=== PATIENT | male | born 1975 | race African-American/Black ===

== ENCOUNTER 2017-05-11 21:13 | Inpatient (IN) | payer MEDICAID ==
[~2017-05-11] VITALS: Ht 185.4 cm; Wt 72.9 kg
[~2017-05-11 21:13] MED LIST: EMTR1TAB11 PO; LEVE500T53 PO; OLAN10TA3 PO
[2017-05-12] MEDS ORDERED: PNEUMOCOCCAL VACCINE POLYVALENT 0.5 ML VIAL [PPSV23] IM ONE (03:00)
[2017-05-12 03:02] LABS: GLUCOSE,POINT OF CARE 93 MG/DL (70-110)
[2017-05-12 03:14] VITALS: BP 134/90
[2017-05-12] MEDS ORDERED: ZOLPIDEM TARTRATE 10 MG TABLET PO PRN (07:45)
[2017-05-12 08:06] LABS: BASOPHILS % (AUTO) 0.5 % (0.0-2.0); EOSINOPHILS % (AUTO) 11.3 % (1.0-6.0); HEMATOCRIT 40.3 % (41-53); LYMPHOCYTES # (AUTO) 1.2 K/uL (1.0-4.8); LYMPHOCYTES % (AUTO) 40.7 % (22.0-44.0); MEAN CORPUSCULAR HEMOGLOBIN 28.5 pg (26.0-34.0); MEAN CORPUSCULAR HGB CONC 34.6 G/dL (31.0-37.0); MEAN CORPUSCULAR VOLUME 82 fL (80-100); MONOCYTES # (AUTO) 0.4 K/uL (0.1-1.0); MONOCYTES % (AUTO) 13.9 % (2.0-9.0); NEUTROPHILS % (AUTO) 33.6 % (40.0-70.0); PLATELET COUNT (AUTO) 159 K/uL (150-450); RED BLOOD CELL COUNT(AUTO) 4.91 MIL/uL (4.50-5.90); RED CELL DISTRIBUTION WIDTH 14.3 % (11.5-14.5); WHITE BLOOD COUNT (AUTO) 2.9 K/uL (4.5-11.0)
[2017-05-12 08:17] LABS: HEMOGLOBIN A1C 5.6 % (4.5-6.2)
[2017-05-12 08:39] LABS: ALANINE AMINOTRANSFERASE 64 U/L (12-78); ANION GAP 6 mmol/L (8-16); ASPARTATE AMINOTRANSFERASE 42 U/L (15-37); BILIRUBIN,TOTAL 0.4 mg/dL (0.1-1.0); CALCIUM, TOTAL 8.5 mg/dL (8.8-10.5); CARBON DIOXIDE 29 mmol/L (22-29); CHLORIDE 108 mmol/L (98-107); CHOL/HDL RATIO 3.3 (4.2-7.3); GLOMERULAR FILTR. RATE CALC > 60 mL/min (>60); POTASSIUM 3.8 mmol/L (3.5-5.1); SODIUM SERUM 143 mmol/L (136-145); THYROID STIMULATING HORMONE 0.92 uIU/mL (0.36-3.74); TOTAL PROTEIN, SERUM 6.6 g/dL (6.4-8.2); UREA NITROGEN, BLOOD 13 mg/dL (7-18)
[2017-05-12] MEDS ORDERED: IBUPROFEN 600 MG TABLET PO PRN (09:00)
[2017-05-12] MEDS ORDERED: BENZOCAINE/MENTHOL LOZENGE MM PRN (09:00)
[2017-05-12] MEDS ORDERED: BACITRACIN 28.4 GM OINTMENT TP PRN (09:00)
[2017-05-12] MEDS ORDERED: ALBUTEROL SULFATE HFA 90 MCG/PUFF 8 GM INHALER IH PRN (09:00)
[2017-05-12] MEDS ORDERED: PETROLATUM,WHITE 71 GM JELLY TP PRN (09:00)
[2017-05-12] MEDS ORDERED: MAGNESIUM HYDROXIDE SUSPENSION 30 ML UDCUP PO PRN (09:00)
[2017-05-12] MEDS: EMTRICITABINE/TENOFOVIR 200-300 MG TABLET PO SCH (09:00)
[2017-05-12] MEDS ORDERED: CloNIDine HCL 0.1 MG TABLET PO PRN (09:00)
[2017-05-12] MEDS ORDERED: ONDANSETRON HCL 4 MG TABLET PO PRN (09:00)
[2017-05-12] MEDS ORDERED: ACETAMINOPHEN 325 MG TABLET PO PRN (09:00)
[2017-05-12] MEDS ORDERED: MAG HYDROX/AL HYDROX/SIMETH ES 30 ML SUSPENSION UDCUP PO PRN (09:00)
[2017-05-12] MEDS ORDERED: LOPERAMIDE HCL 2 MG CAPSULE PO PRN (09:00)
[2017-05-12 09:30] VITALS: BP 130/79
[2017-05-12] MEDS: MULTIVITAMINS WITH MINERALS, THERAPEUTIC TABLET PO SCH (10:08)
[2017-05-12] MEDS: LevETIRAcetam 500 MG TABLET PO SCH ×2 (10:08→17:53)
[2017-05-12] MEDS: QUEtiapine FUMARATE 100 MG TABLET PO PRN (15:02)
[2017-05-12] MEDS: LORazepam 1 MG TABLET PO PRN (15:02)
[2017-05-12 16:53] VITALS: BP 136/91
[2017-05-12] MEDS: HALOPERIDOL 5 MG TABLET PO SCH (17:53)
[2017-05-12] MEDS: BENZTROPINE MESYLATE 0.5 MG TABLET PO SCH (17:53)
[2017-05-12] MEDS ORDERED: LORazepam 2 MG/ML VIAL IM ONE (19:15)
[2017-05-12] MEDS ORDERED: HALOPERIDOL LACTATE 5 MG/ML VIAL IM ONE (19:15)
[2017-05-12] MEDS ORDERED: DiphenhydrAMINE HCL 50 MG/ML VIAL IM ONE (19:15)
[2017-05-13 06:31] VITALS: BP 128/84
[2017-05-13] MEDS: HALOPERIDOL 5 MG TABLET PO SCH ×2 (09:41→16:48)
[2017-05-13] MEDS: EMTRICITABINE/TENOFOVIR 200-300 MG TABLET PO SCH (09:41)
[2017-05-13] MEDS: LORazepam 1 MG TABLET PO PRN ×2 (09:41→16:48)
[2017-05-13] MEDS: BENZTROPINE MESYLATE 0.5 MG TABLET PO SCH ×2 (09:41→16:48)
[2017-05-13] MEDS: LevETIRAcetam 500 MG TABLET PO SCH ×2 (09:42→16:48)
[2017-05-13] MEDS: MULTIVITAMINS WITH MINERALS, THERAPEUTIC TABLET PO SCH (09:42)
[2017-05-14] MEDS: HALOPERIDOL 5 MG TABLET PO SCH ×2 (09:32→16:58)
[2017-05-14] MEDS: LevETIRAcetam 500 MG TABLET PO SCH ×2 (09:32→16:58)
[2017-05-14] MEDS: LORazepam 1 MG TABLET PO PRN ×2 (09:32→16:58)
[2017-05-14] MEDS: MULTIVITAMINS WITH MINERALS, THERAPEUTIC TABLET PO SCH (09:32)
[2017-05-14] MEDS: BENZTROPINE MESYLATE 0.5 MG TABLET PO SCH ×2 (09:33→16:58)
[2017-05-14] MEDS: EMTRICITABINE/TENOFOVIR 200-300 MG TABLET PO SCH (09:34)
[2017-05-15 08:38] LABS: APPEARANCE,URINE CLEAR (CLEAR); GLUCOSE, URINE (UA) NEGATIVE (NEGATIVE); KETONES,URINE NEGATIVE (NEGATIVE); LEUKOCYTE ESTERASE ,URINE NEGATIVE (NEGATIVE); OCCULT BLOOD,URINE NEGATIVE (NEGATIVE); PH,URINE 6.5 (5.0-8.0); PROTEIN,URINE NEGATIVE (NEGATIVE)
[2017-05-15] MEDS: EMTRICITABINE/TENOFOVIR 200-300 MG TABLET PO SCH (09:26)
[2017-05-15] MEDS: BENZTROPINE MESYLATE 0.5 MG TABLET PO SCH ×2 (09:27→17:07)
[2017-05-15] MEDS: LevETIRAcetam 500 MG TABLET PO SCH ×2 (09:27→17:08)
[2017-05-15] MEDS: HALOPERIDOL 5 MG TABLET PO SCH ×2 (09:27→17:08)
[2017-05-15] MEDS: QUEtiapine FUMARATE 100 MG TABLET PO PRN (09:28)
[2017-05-15] MEDS: MULTIVITAMINS WITH MINERALS, THERAPEUTIC TABLET PO SCH (09:31)
[2017-05-15 09:50] LABS: ADD UA MICROSCOPIC NO
[2017-05-15] MEDS: LORazepam 1 MG TABLET PO PRN (17:08)
[2017-05-16] MEDS: MULTIVITAMINS WITH MINERALS, THERAPEUTIC TABLET PO SCH (09:36)
[2017-05-16] MEDS: HALOPERIDOL 5 MG TABLET PO SCH ×2 (09:36→16:43)
[2017-05-16] MEDS: BENZTROPINE MESYLATE 0.5 MG TABLET PO SCH ×2 (09:36→16:43)
[2017-05-16] MEDS: LevETIRAcetam 500 MG TABLET PO SCH ×2 (09:36→16:43)
[2017-05-16] MEDS: EMTRICITABINE/TENOFOVIR 200-300 MG TABLET PO SCH (09:36)
[2017-05-16] MEDS: LORazepam 1 MG TABLET PO PRN ×2 (09:40→16:42)
[2017-05-16 16:15] VITALS: BP 113/69
[2017-05-17 06:45] VITALS: BP 119/70
[2017-05-17 08:12] VITALS: BP 117/86
[2017-05-17] MEDS: LORazepam 1 MG TABLET PO PRN ×2 (08:46→16:42)
[2017-05-17] MEDS: LevETIRAcetam 500 MG TABLET PO SCH ×2 (08:46→16:42)
[2017-05-17] MEDS: EMTRICITABINE/TENOFOVIR 200-300 MG TABLET PO SCH (08:46)
[2017-05-17] MEDS: HALOPERIDOL 5 MG TABLET PO SCH ×2 (08:47→16:42)
[2017-05-17] MEDS: BENZTROPINE MESYLATE 0.5 MG TABLET PO SCH ×2 (08:47→16:42)
[2017-05-17] MEDS: MULTIVITAMINS WITH MINERALS, THERAPEUTIC TABLET PO SCH (08:47)
[2017-05-17 16:45] VITALS: BP 119/86
[2017-05-18 06:43] VITALS: BP 110/86
[2017-05-18] MEDS: BENZTROPINE MESYLATE 0.5 MG TABLET PO SCH ×2 (08:54→16:26)
[2017-05-18] MEDS: LORazepam 1 MG TABLET PO PRN ×2 (08:54→16:26)
[2017-05-18] MEDS: HALOPERIDOL 5 MG TABLET PO SCH ×2 (08:54→16:26)
[2017-05-18] MEDS: LevETIRAcetam 500 MG TABLET PO SCH ×2 (08:54→16:26)
[2017-05-18] MEDS: MULTIVITAMINS WITH MINERALS, THERAPEUTIC TABLET PO SCH (08:54)
[2017-05-18] MEDS: EMTRICITABINE/TENOFOVIR 200-300 MG TABLET PO SCH (08:54)
[2017-05-18 09:02] VITALS: BP 100/59
[2017-05-18 16:00] VITALS: BP 121/86
[2017-05-19 06:34] VITALS: BP 124/82
[2017-05-19 08:19] VITALS: BP 156/89
[2017-05-19] MEDS: BENZTROPINE MESYLATE 0.5 MG TABLET PO SCH ×2 (09:21→17:00)
[2017-05-19] MEDS: EMTRICITABINE/TENOFOVIR 200-300 MG TABLET PO SCH (09:21)
[2017-05-19] MEDS: LevETIRAcetam 500 MG TABLET PO SCH ×2 (09:21→17:00)
[2017-05-19] MEDS: MULTIVITAMINS WITH MINERALS, THERAPEUTIC TABLET PO SCH (09:21)
[2017-05-19] MEDS: HALOPERIDOL 5 MG TABLET PO SCH ×2 (09:21→17:00)
[2017-05-19] MEDS: LORazepam 1 MG TABLET PO PRN (09:31)
[2017-05-19] MEDS ORDERED: LORazepam 2 MG/ML VIAL IM ONE (11:15)
[2017-05-19] MEDS ORDERED: HALOPERIDOL LACTATE 5 MG/ML VIAL ONE (11:15)
[2017-05-19] MEDS ORDERED: HALOPERIDOL LACTATE 5 MG/ML VIAL IM ONE (11:15)
[2017-05-19] MEDS ORDERED: DiphenhydrAMINE HCL 50 MG/ML VIAL ONE (11:15)
[2017-05-19] MEDS ORDERED: LORazepam 2 MG/ML VIAL ONE (11:15)
[2017-05-19] MEDS ORDERED: DiphenhydrAMINE HCL 50 MG/ML VIAL IM ONE (11:15)
[2017-05-20 04:29] VITALS: BP 136/88
[2017-05-20] MEDS: HALOPERIDOL 5 MG TABLET PO SCH ×2 (09:25→17:07)
[2017-05-20] MEDS: MULTIVITAMINS WITH MINERALS, THERAPEUTIC TABLET PO SCH (09:25)
[2017-05-20] MEDS: LevETIRAcetam 500 MG TABLET PO SCH ×2 (09:26→17:08)
[2017-05-20] MEDS: EMTRICITABINE/TENOFOVIR 200-300 MG TABLET PO SCH (09:26)
[2017-05-20] MEDS: BENZTROPINE MESYLATE 0.5 MG TABLET PO SCH ×2 (09:26→17:07)
[2017-05-20] MEDS: LORazepam 1 MG TABLET PO PRN ×2 (09:30→17:08)
[2017-05-20 16:37] VITALS: BP 117/81
[2017-05-21 03:23] VITALS: BP 127/70
[2017-05-21] MEDS: EMTRICITABINE/TENOFOVIR 200-300 MG TABLET PO SCH (09:35)
[2017-05-21] MEDS: LORazepam 1 MG TABLET PO PRN (09:35)
[2017-05-21] MEDS: MULTIVITAMINS WITH MINERALS, THERAPEUTIC TABLET PO SCH (09:35)
[2017-05-21] MEDS: BENZTROPINE MESYLATE 0.5 MG TABLET PO SCH (09:35)
[2017-05-21] MEDS: HALOPERIDOL 5 MG TABLET PO SCH (09:35)
[2017-05-21] MEDS: LevETIRAcetam 500 MG TABLET PO SCH (09:35)
[2017-05-21] MEDS ORDERED: HALO10 PO (13:55)
[2017-05-21] MEDS ORDERED: BENZ0.5T6 PO (13:58)
== END 2017-05-21 14:30 | disposition home or self-care (01) | DRG 750 ==
LOC: B2S 05-12 02:14 → B3A 05-12 02:14
PROVIDERS: ADMIT Psychiatry & Neurology Psychiatry; ATTEND Psychiatry & Neurology Psychiatry
DX: F25.0 Schizoaffective disorder, bipolar type (principal); R45.851 Suicidal ideations; E55.9 Vitamin D deficiency, unspecified; R45.850 Homicidal ideations; G40.909 Epilepsy, unspecified, not intractable, without status epilepticus; J45.909 Unspecified asthma, uncomplicated; F17.210 Nicotine dependence, cigarettes, uncomplicated; F12.90 Cannabis use, unspecified, uncomplicated; R63.6 Underweight; D72.819 Decreased white blood cell count, unspecified; G47.00 Insomnia, unspecified; F15.10 Other stimulant abuse, uncomplicated; F20.0 Paranoid schizophrenia; Z91.14 Patient's other noncompliance with medication regimen; Z59.0 Homelessness; Z68.21 Body mass index [BMI] 21.0-21.9, adult; Z71.6 Tobacco abuse counseling; Z71.51 Drug abuse counseling and surveillance of drug abuser; Z88.0 Allergy status to penicillin; Z88.2 Allergy status to sulfonamides; Z79.899 Other long term (current) drug therapy
CPT/HCPCS: 80307; 82962; 83036; 84443; J1200; J1630; J2060

== ENCOUNTER 2018-03-08 18:37 | Inpatient (IN) | payer MEDICAID, OTHER ==
[~2018-03-08] VITALS: Ht 180.3 cm; Wt 66.7 kg
[~2018-03-08 18:37] MED LIST changes: +BENZ0.5T44 PO; -EMTR1TAB11 PO; +HALO10 PO; -OLAN10TA3 PO; +TRUVT PO
[2018-03-08 19:51] LABS: EOSINOPHILS % (AUTO) 9.6 % (1.0-6.0); HEMATOCRIT 46.5 % (41-53); HEMOGLOBIN 16.2 g/dL (13.5-17.5); LYMPHOCYTES % (AUTO) 37.8 % (22.0-44.0); MEAN CORPUSCULAR HEMOGLOBIN 27.8 pg (26.0-34.0); MEAN CORPUSCULAR HGB CONC 34.8 G/dL (31.0-37.0); MEAN CORPUSCULAR VOLUME 80 fL (80-100); MONOCYTES # (AUTO) 0.3 K/uL (0.1-1.0); MONOCYTES % (AUTO) 12.8 % (2.0-9.0); NEUTROPHILS % (AUTO) 37.8 % (40.0-70.0); PLATELET COUNT (AUTO) 153 K/uL (150-450); RED BLOOD CELL COUNT(AUTO) 5.83 MIL/uL (4.50-5.90); RED CELL DISTRIBUTION WIDTH 14.6 % (11.5-14.5)
[2018-03-08 20:05] LABS: ANION GAP 12 mmol/L (8-16); CALCIUM, TOTAL 9.1 mg/dL (8.8-10.5); CARBON DIOXIDE 26 mmol/L (22-29); CHLORIDE 103 mmol/L (98-107); CREATININE 1.11 mg/dL (0.60-1.30); GLOMERULAR FILTR. RATE CALC > 60 mL/min (>60); GLUCOSE,RANDOM 88 mg/dL (70-110); POTASSIUM 3.1 mmol/L (3.5-5.1); SODIUM SERUM 141 mmol/L (136-145); UREA NITROGEN, BLOOD 12 mg/dL (7-18)
[2018-03-08 20:11] LABS: ALANINE AMINOTRANSFERASE 69 U/L (12-78); ALBUMIN 3.8 g/dL (3.4-5.0); ALKALINE PHOSPHATASE 79 U/L (46-116); ASPARTATE AMINOTRANSFERASE 46 U/L (15-37); BILIRUBIN,TOTAL 0.7 mg/dL (0.1-1.0)
[2018-03-08 20:14] LABS: AMPHET/METH SCREEN,URINE NEGATIVE (NEGATIVE); BARBITURATE SCREEN, URINE NEGATIVE (NEGATIVE); BENZODIAZEPINES SCREEN,URINE NEGATIVE (NEGATIVE); CANNABINOID SCREEN,URINE POSITIVE (NEGATIVE); COCAINE SCREEN,URINE NEGATIVE (NEGATIVE); METHADONE SCREEN, URINE NEGATIVE (NEGATIVE); OPIATE SCREEN,URINE NEGATIVE (NEGATIVE); PHENCYCLIDINE SCREEN,URINE NEGATIVE (NEGATIVE)
[2018-03-08] MEDS ORDERED: HALOPERIDOL 5 MG TABLET PO ONE (20:45)
[2018-03-08] MEDS ORDERED: LORazepam 2 MG TABLET PO ONE (20:45)
[2018-03-08] MEDS ORDERED: POTASSIUM CHLORIDE 20 MEQ ER TABLET PO ONE ×2 (21:00→22:00)
[2018-03-08] MEDS: ZOLPIDEM TARTRATE 10 MG TABLET PO PRN (21:40)
[2018-03-08 21:46] VITALS: BP 147/98
[2018-03-09 04:53] VITALS: BP 127/86
[2018-03-09 08:16] VITALS: BP 135/80
[2018-03-09] MEDS: LevETIRAcetam 500 MG TABLET PO SCH ×2 (08:24→16:52)
[2018-03-09] MEDS ORDERED: BACITRACIN 28.4 GM OINTMENT TP PRN (08:30)
[2018-03-09] MEDS ORDERED: ALBUTEROL SULFATE HFA 90 MCG/PUFF 8 GM INHALER IH PRN (08:30)
[2018-03-09] MEDS ORDERED: CloNIDine HCL 0.1 MG TABLET PO PRN (08:30)
[2018-03-09] MEDS ORDERED: IBUPROFEN 600 MG TABLET PO PRN (08:30)
[2018-03-09] MEDS ORDERED: PETROLATUM,WHITE 71 GM JELLY TP PRN (08:30)
[2018-03-09] MEDS ORDERED: MAGNESIUM HYDROXIDE SUSPENSION 30 ML UDCUP PO PRN (08:30)
[2018-03-09] MEDS ORDERED: LOPERAMIDE HCL 2 MG CAPSULE PO PRN (08:30)
[2018-03-09] MEDS ORDERED: ONDANSETRON HCL 4 MG TABLET PO PRN (08:30)
[2018-03-09] MEDS ORDERED: ACETAMINOPHEN 325 MG TABLET PO PRN (08:30)
[2018-03-09] MEDS ORDERED: BENZOCAINE/MENTHOL LOZENGE MM PRN (08:30)
[2018-03-09] MEDS ORDERED: MAG HYDROX/AL HYDROX/SIMETH ES 30 ML SUSPENSION UDCUP PO PRN (08:30)
[2018-03-09 08:40] LABS: ALANINE AMINOTRANSFERASE 64 U/L (12-78); ALBUMIN 3.6 g/dL (3.4-5.0); ALKALINE PHOSPHATASE 79 U/L (46-116); ANION GAP 8 mmol/L (8-16); ASPARTATE AMINOTRANSFERASE 47 U/L (15-37); BILIRUBIN,TOTAL 0.6 mg/dL (0.1-1.0); CALCIUM, TOTAL 8.9 mg/dL (8.8-10.5); CARBON DIOXIDE 27 mmol/L (22-29); CHLORIDE 104 mmol/L (98-107); CHOL/HDL RATIO 3.4 (4.2-7.3); CHOLESTEROL 191 mg/dL (131-200); CREATININE 0.99 mg/dL (0.60-1.30); GLOMERULAR FILTR. RATE CALC > 60 mL/min (>60); GLUCOSE,RANDOM 114 mg/dL (70-110); HDL CHOLESTEROL 56 mg/dL (40-60); LDL CHOL (CALC.) 127 mg/dL (0-130); POTASSIUM 3.4 mmol/L (3.5-5.1); SODIUM SERUM 139 mmol/L (136-145); TOTAL PROTEIN, SERUM 8.1 g/dL (6.4-8.2); TRIGLYCERIDES 39 mg/dL (15-150); UREA NITROGEN, BLOOD 15 mg/dL (7-18)
[2018-03-09] MEDS: HALOPERIDOL 5 MG TABLET PO SCH (09:00)
[2018-03-09] MEDS: BENZTROPINE MESYLATE 0.5 MG TABLET PO SCH ×2 (09:00→20:46)
[2018-03-09] MEDS ORDERED: LORazepam 2 MG/ML VIAL ONE (09:02)
[2018-03-09] MEDS ORDERED: HALOPERIDOL LACTATE 5 MG/ML VIAL ONE (09:02)
[2018-03-09] MEDS ORDERED: DiphenhydrAMINE HCL 50 MG/ML VIAL IM ONE (09:15)
[2018-03-09] MEDS ORDERED: HALOPERIDOL LACTATE 5 MG/ML VIAL IM ONE (09:15)
[2018-03-09] MEDS ORDERED: LORazepam 2 MG/ML VIAL IM ONE (09:15)
[2018-03-09] MEDS ORDERED: POTASSIUM CHLORIDE 20 MEQ ER TABLET PO ONE (10:00)
[2018-03-09 16:52] VITALS: BP 104/63
[2018-03-09] MEDS: EMTRICITABINE/TENOFOVIR 200-300 MG TABLET PO SCH (16:52)
[2018-03-09] MEDS: HALOPERIDOL 10 MG TABLET PO SCH (20:46)
[2018-03-10 01:42] VITALS: BP 128/90
[2018-03-10] MEDS ORDERED: DiphenhydrAMINE HCL 50 MG/ML VIAL ONE (06:51)
[2018-03-10] MEDS ORDERED: HALOPERIDOL LACTATE 5 MG/ML VIAL ONE (06:51)
[2018-03-10] MEDS ORDERED: HALOPERIDOL LACTATE 5 MG/ML VIAL IM ONE (07:00)
[2018-03-10] MEDS ORDERED: LORazepam 2 MG/ML VIAL IM ONE (07:00)
[2018-03-10] MEDS ORDERED: DiphenhydrAMINE HCL 50 MG/ML VIAL IM ONE (07:00)
[2018-03-10] MEDS: HALOPERIDOL 5 MG TABLET PO SCH (09:00)
[2018-03-10] MEDS: LevETIRAcetam 500 MG TABLET PO SCH ×3 (09:00→20:13)
[2018-03-10] MEDS: EMTRICITABINE/TENOFOVIR 200-300 MG TABLET PO SCH (09:00)
[2018-03-10] MEDS: BENZTROPINE MESYLATE 0.5 MG TABLET PO SCH ×2 (09:00→20:13)
[2018-03-10 16:17] VITALS: BP 117/87
[2018-03-10] MEDS: HALOPERIDOL 10 MG TABLET PO SCH (20:12)
[2018-03-10] MEDS ORDERED: POTASSIUM CHLORIDE 20 MEQ ER TABLET PO ONE (21:15)
[2018-03-11 00:18] VITALS: BP 138/90
[2018-03-11] MEDS: LORazepam 2 MG TABLET PO PRN ×2 (06:49→16:18)
[2018-03-11] MEDS: HALOPERIDOL 5 MG TABLET PO PRN (06:49)
[2018-03-11 08:05] VITALS: BP 138/89
[2018-03-11] MEDS: HALOPERIDOL 5 MG TABLET PO SCH (08:10)
[2018-03-11] MEDS: EMTRICITABINE/TENOFOVIR 200-300 MG TABLET PO SCH (08:10)
[2018-03-11] MEDS: BENZTROPINE MESYLATE 0.5 MG TABLET PO SCH ×2 (08:10→20:31)
[2018-03-11] MEDS: LevETIRAcetam 500 MG TABLET PO SCH (08:10)
[2018-03-11 16:14] VITALS: BP 131/91
[2018-03-11] MEDS: ZOLPIDEM TARTRATE 10 MG TABLET PO PRN (20:31)
[2018-03-11] MEDS: HALOPERIDOL 10 MG TABLET PO SCH (20:31)
[2018-03-12 05:57] VITALS: BP 130/72
[2018-03-12 08:04] VITALS: BP 130/86
[2018-03-12] MEDS: HALOPERIDOL 5 MG TABLET PO SCH (08:11)
[2018-03-12] MEDS: LevETIRAcetam 500 MG TABLET PO SCH ×2 (08:12→16:06)
[2018-03-12] MEDS: BENZTROPINE MESYLATE 0.5 MG TABLET PO SCH ×2 (08:12→20:26)
[2018-03-12] MEDS: EMTRICITABINE/TENOFOVIR 200-300 MG TABLET PO SCH (08:12)
[2018-03-12 08:35] LABS: BASOPHILS % (AUTO) 0.6 % (0.0-2.0); EOSINOPHILS % (AUTO) 7.5 % (1.0-6.0); HEMATOCRIT 46.3 % (41-53); HEMOGLOBIN 16.6 g/dL (13.5-17.5); LYMPHOCYTES # (AUTO) 1.6 K/uL (1.0-4.8); LYMPHOCYTES % (AUTO) 46.1 % (22.0-44.0); MEAN CORPUSCULAR HEMOGLOBIN 28.6 pg (26.0-34.0); MEAN CORPUSCULAR HGB CONC 35.8 G/dL (31.0-37.0); MEAN CORPUSCULAR VOLUME 80 fL (80-100); MONOCYTES # (AUTO) 0.4 K/uL (0.1-1.0); MONOCYTES % (AUTO) 12.7 % (2.0-9.0); NEUTROPHILS # (AUTO) 1.1 K/uL (1.8-7.7); NEUTROPHILS % (AUTO) 33.1 % (40.0-70.0); PLATELET COUNT (AUTO) 144 K/uL (150-450); RED CELL DISTRIBUTION WIDTH 14.6 % (11.5-14.5)
[2018-03-12 09:02] LABS: ANION GAP 7 mmol/L (8-16); CALCIUM, TOTAL 9.1 mg/dL (8.8-10.5); CARBON DIOXIDE 29 mmol/L (22-29); CHLORIDE 102 mmol/L (98-107); CREATININE 0.98 mg/dL (0.60-1.30); GLOMERULAR FILTR. RATE CALC > 60 mL/min (>60); GLUCOSE,RANDOM 99 mg/dL (70-110); POTASSIUM 4.1 mmol/L (3.5-5.1); SODIUM SERUM 138 mmol/L (136-145); UREA NITROGEN, BLOOD 13 mg/dL (7-18)
[2018-03-12 09:38] LABS: PLATELET MORPHOLOGY COMMENT GIANT PLTS PRESENT
[2018-03-12 16:01] VITALS: BP 121/79
[2018-03-12] MEDS: LORazepam 2 MG TABLET PO PRN ×2 (16:06→21:28)
[2018-03-12] MEDS: HALOPERIDOL 10 MG TABLET PO SCH (20:26)
[2018-03-12] MEDS: ZOLPIDEM TARTRATE 10 MG TABLET PO PRN (21:28)
[2018-03-13 04:02] VITALS: BP 140/80
[2018-03-13 08:28] VITALS: BP 137/76
[2018-03-13] MEDS: HALOPERIDOL 5 MG TABLET PO SCH ×2 (09:00→09:40)
[2018-03-13] MEDS: BENZTROPINE MESYLATE 0.5 MG TABLET PO SCH ×3 (09:00→20:36)
[2018-03-13] MEDS: EMTRICITABINE/TENOFOVIR 200-300 MG TABLET PO SCH (09:00)
[2018-03-13] MEDS: LevETIRAcetam 500 MG TABLET PO SCH ×3 (09:00→16:22)
[2018-03-13 16:05] VITALS: BP 149/91
[2018-03-13] MEDS: LORazepam 2 MG TABLET PO PRN ×2 (16:22→20:36)
[2018-03-13] MEDS: ZOLPIDEM TARTRATE 10 MG TABLET PO PRN (20:36)
[2018-03-13] MEDS: HALOPERIDOL 10 MG TABLET PO SCH (20:36)
[2018-03-14 03:13] VITALS: BP 135/86
[2018-03-14] MEDS: LORazepam 2 MG TABLET PO PRN ×3 (06:46→20:54)
[2018-03-14] MEDS: HALOPERIDOL 5 MG TABLET PO PRN (06:47)
[2018-03-14 08:02] VITALS: BP 130/72
[2018-03-14] MEDS: BENZTROPINE MESYLATE 0.5 MG TABLET PO SCH ×2 (08:49→20:32)
[2018-03-14] MEDS: HALOPERIDOL 5 MG TABLET PO SCH (08:49)
[2018-03-14] MEDS: EMTRICITABINE/TENOFOVIR 200-300 MG TABLET PO SCH (08:50)
[2018-03-14] MEDS: LevETIRAcetam 500 MG TABLET PO SCH ×2 (08:50→16:36)
[2018-03-14 16:05] VITALS: BP 113/79
[2018-03-14] MEDS: HALOPERIDOL 10 MG TABLET PO SCH (20:32)
[2018-03-14] MEDS: ZOLPIDEM TARTRATE 10 MG TABLET PO PRN (20:54)
[2018-03-15 05:31] VITALS: BP 121/92
[2018-03-15 08:19] VITALS: BP 146/89
[2018-03-15] MEDS: HALOPERIDOL 5 MG TABLET PO SCH (08:25)
[2018-03-15] MEDS: LevETIRAcetam 500 MG TABLET PO SCH ×2 (08:25→16:32)
[2018-03-15] MEDS: EMTRICITABINE/TENOFOVIR 200-300 MG TABLET PO SCH (09:00)
[2018-03-15] MEDS: BENZTROPINE MESYLATE 0.5 MG TABLET PO SCH ×2 (09:00→20:09)
[2018-03-15 16:00] VITALS: BP 144/94
[2018-03-15] MEDS: ZOLPIDEM TARTRATE 10 MG TABLET PO PRN (20:09)
[2018-03-15] MEDS: HALOPERIDOL 10 MG TABLET PO SCH (20:09)
[2018-03-16 03:44] VITALS: BP 138/75
[2018-03-16 08:01] VITALS: BP 134/94
[2018-03-16] MEDS: HALOPERIDOL 5 MG TABLET PO SCH (08:08)
[2018-03-16] MEDS: EMTRICITABINE/TENOFOVIR 200-300 MG TABLET PO SCH (08:08)
[2018-03-16] MEDS: BENZTROPINE MESYLATE 0.5 MG TABLET PO SCH ×2 (08:08→20:35)
[2018-03-16] MEDS: LevETIRAcetam 500 MG TABLET PO SCH ×2 (08:08→16:12)
[2018-03-16] MEDS: LORazepam 2 MG TABLET PO PRN ×3 (10:28→20:35)
[2018-03-16 16:06] VITALS: BP 128/92
[2018-03-16] MEDS: ZOLPIDEM TARTRATE 10 MG TABLET PO PRN (20:35)
[2018-03-16] MEDS: HALOPERIDOL 10 MG TABLET PO SCH (20:35)
[2018-03-17 01:13] VITALS: BP 132/88
[2018-03-17 08:20] VITALS: BP 132/94
[2018-03-17] MEDS: EMTRICITABINE/TENOFOVIR 200-300 MG TABLET PO SCH (08:28)
[2018-03-17] MEDS: LORazepam 2 MG TABLET PO PRN ×4 (08:29→23:43)
[2018-03-17] MEDS: BENZTROPINE MESYLATE 0.5 MG TABLET PO SCH ×2 (08:29→20:22)
[2018-03-17] MEDS: HALOPERIDOL 5 MG TABLET PO SCH (08:29)
[2018-03-17] MEDS: LevETIRAcetam 500 MG TABLET PO SCH ×2 (08:29→17:02)
[2018-03-17] MEDS: HALOPERIDOL 5 MG TABLET PO PRN ×2 (12:31→23:43)
[2018-03-17 16:08] VITALS: BP 138/87
[2018-03-17] MEDS: HALOPERIDOL 10 MG TABLET PO SCH (20:22)
[2018-03-17 23:41] VITALS: BP 126/81
[2018-03-17] MEDS: ZOLPIDEM TARTRATE 10 MG TABLET PO PRN (23:43)
[2018-03-18] VITALS (9 sets, daily range): BP systolic 120–130; BP diastolic 67–96
[2018-03-18] MEDS: LevETIRAcetam 500 MG TABLET PO SCH ×2 (08:00→16:50)
[2018-03-18] MEDS: EMTRICITABINE/TENOFOVIR 200-300 MG TABLET PO SCH (08:00)
[2018-03-18] MEDS: HALOPERIDOL 5 MG TABLET PO SCH (08:01)
[2018-03-18] MEDS: BENZTROPINE MESYLATE 0.5 MG TABLET PO SCH ×2 (08:01→20:44)
[2018-03-18] MEDS: LORazepam 2 MG TABLET PO PRN (08:48)
[2018-03-18] MEDS ORDERED: BENZOCAINE/MENTHOL LOZENGE MM PRN (18:15)
[2018-03-18] MEDS ORDERED: DiphenhydrAMINE HCL 50 MG/ML VIAL IM ONE ×2 (18:45→19:05)
[2018-03-18] MEDS ORDERED: LORazepam 2 MG/ML VIAL IM ONE ×2 (18:45→19:05)
[2018-03-18] MEDS ORDERED: HALOPERIDOL LACTATE 5 MG/ML VIAL IM ONE ×2 (18:45→19:05)
[2018-03-18] MEDS ORDERED: DiphenhydrAMINE HCL 50 MG/ML VIAL ONE (18:46)
[2018-03-18] MEDS ORDERED: HALOPERIDOL LACTATE 5 MG/ML VIAL ONE (18:46)
[2018-03-18] MEDS ORDERED: LORazepam 2 MG/ML VIAL ONE (18:46)
[2018-03-18] MEDS: HALOPERIDOL 10 MG TABLET PO SCH (20:44)
[2018-03-19] MEDS: BENZTROPINE MESYLATE 0.5 MG TABLET PO SCH ×2 (09:04→20:16)
[2018-03-19] MEDS: LevETIRAcetam 500 MG TABLET PO SCH ×2 (09:05→16:11)
[2018-03-19] MEDS: EMTRICITABINE/TENOFOVIR 200-300 MG TABLET PO SCH (09:05)
[2018-03-19] MEDS: HALOPERIDOL 5 MG TABLET PO SCH (09:05)
[2018-03-19] MEDS: LORazepam 2 MG TABLET PO PRN (13:08)
[2018-03-19] MEDS: HALOPERIDOL 5 MG TABLET PO PRN (14:19)
[2018-03-19 16:05] VITALS: BP 131/81
[2018-03-19] MEDS: HALOPERIDOL 10 MG TABLET PO SCH (20:16)
[2018-03-19] MEDS: ZOLPIDEM TARTRATE 10 MG TABLET PO PRN (20:53)
[2018-03-20 03:47] VITALS: BP 122/88
[2018-03-20 08:03] VITALS: BP 133/68
[2018-03-20] MEDS: HALOPERIDOL 5 MG TABLET PO SCH (08:10)
[2018-03-20] MEDS: EMTRICITABINE/TENOFOVIR 200-300 MG TABLET PO SCH (08:10)
[2018-03-20] MEDS: LORazepam 2 MG TABLET PO PRN (08:11)
[2018-03-20] MEDS: BENZTROPINE MESYLATE 0.5 MG TABLET PO SCH (08:11)
[2018-03-20] MEDS: LevETIRAcetam 500 MG TABLET PO SCH (08:11)
[2018-03-20] MEDS ORDERED: HALO5 PO (12:56)
== END 2018-03-20 13:25 | disposition home or self-care (01) | DRG 750 ==
LOC: EMS 18:38 → B3A 20:30
PROVIDERS: ATTEND Psychiatry & Neurology Psychiatry
DX: F25.0 Schizoaffective disorder, bipolar type (principal); Z78.1 Physical restraint status; F15.10 Other stimulant abuse, uncomplicated; D72.819 Decreased white blood cell count, unspecified; E87.6 Hypokalemia; F12.90 Cannabis use, unspecified, uncomplicated; F17.210 Nicotine dependence, cigarettes, uncomplicated; G40.909 Epilepsy, unspecified, not intractable, without status epilepticus; G47.00 Insomnia, unspecified; J45.909 Unspecified asthma, uncomplicated; K21.9 Gastro-esophageal reflux disease without esophagitis; F41.9 Anxiety disorder, unspecified; Z88.0 Allergy status to penicillin; Z88.2 Allergy status to sulfonamides; Z79.899 Other long term (current) drug therapy; Z71.51 Drug abuse counseling and surveillance of drug abuser; Z71.6 Tobacco abuse counseling
CPT/HCPCS: 80074; 86361; 99285; G0480; J1200; J1630; J2060

== ENCOUNTER 2018-07-15 19:53 | Inpatient (IN) | payer MEDICAID, OTHER ==
[~2018-07-15] VITALS: Ht 180.3 cm; Wt 67.1 kg
[~2018-07-15 19:53] MED LIST changes: +HALO5TAB2 PO
[2018-07-15 21:31] LABS: HEMATOCRIT 47.3 % (41-53); HEMOGLOBIN 16.5 g/dL (13.5-17.5); MEAN CORPUSCULAR VOLUME 83 fL (80-100); PLATELET COUNT (AUTO) 172 K/uL (150-450)
[2018-07-15 21:37] LABS: ANION GAP 10 mmol/L (8-16); CALCIUM, TOTAL 9.5 mg/dL (8.8-10.5); CARBON DIOXIDE 24 mmol/L (22-29); CHLORIDE 106 mmol/L (98-107); CREATININE 1.04 mg/dL (0.60-1.30); GLOMERULAR FILTR. RATE CALC > 60 mL/min (>60); GLUCOSE,RANDOM 92 mg/dL (70-110); POTASSIUM 3.8 mmol/L (3.5-5.1); SODIUM SERUM 140 mmol/L (136-145); UREA NITROGEN, BLOOD 12 mg/dL (7-18)
[2018-07-15 21:37] LABS: AMPHET/METH SCREEN,URINE NEGATIVE (NEGATIVE); BARBITURATE SCREEN, URINE NEGATIVE (NEGATIVE); BENZODIAZEPINES SCREEN,URINE NEGATIVE (NEGATIVE); CANNABINOID SCREEN,URINE POSITIVE (NEGATIVE); COCAINE SCREEN,URINE NEGATIVE (NEGATIVE); METHADONE SCREEN, URINE NEGATIVE (NEGATIVE); OPIATE SCREEN,URINE NEGATIVE (NEGATIVE)
[2018-07-15 21:38] LABS: PHENCYCLIDINE SCREEN,URINE NEGATIVE (NEGATIVE)
[2018-07-15 21:42] LABS: ALANINE AMINOTRANSFERASE 88 U/L (12-78); ALBUMIN 3.8 g/dL (3.4-5.0); ALKALINE PHOSPHATASE 69 U/L (46-116); ASPARTATE AMINOTRANSFERASE 58 U/L (15-37); BILIRUBIN,TOTAL 0.7 mg/dL (0.1-1.0); TOTAL PROTEIN, SERUM 8.5 g/dL (6.4-8.2)
[2018-07-15] MEDS ORDERED: DiphenhydrAMINE HCL 50 MG/ML VIAL IM ONE (21:45)
[2018-07-15] MEDS ORDERED: HALOPERIDOL LACTATE 5 MG/ML VIAL IM ONE (21:45)
[2018-07-15] MEDS ORDERED: LORazepam 2 MG/ML VIAL IM ONE (21:45)
[2018-07-15 22:08] LABS: BAND NEUTROPHILS % (MANUAL) 0 % (0-5)
[2018-07-15 22:16] LABS: BASOPHILS % (MANUAL) 2 % (0-2); EOSINOPHILS % (MANUAL) 6 % (1-6); LYMPHOCYTES % (MANUAL) 41 % (22-44); MONOCYTES % (MANUAL) 9 % (2-9); REACTIVE LYMPHOCYTES 10 % (0-0); SEGMENTED NEUTROPHILS % 32 % (40-70)
[2018-07-15 22:17] LABS: PLATELET MORPHOLOGY COMMENT GIANT PLTS PRESENT
[2018-07-17] MEDS: LORazepam 2 MG TABLET PO PRN ×2 (00:33→14:47)
[2018-07-17] MEDS: HALOPERIDOL 5 MG TABLET PO PRN ×2 (00:34→14:48)
[2018-07-17] MEDS ORDERED: ACETAMINOPHEN 325 MG TABLET PO PRN ×2 (13:30→15:15)
[2018-07-17] MEDS ORDERED: LOPERAMIDE HCL 2 MG CAPSULE PO PRN ×2 (13:30→15:15)
[2018-07-17] MEDS ORDERED: HydrOXYzine PAMOATE 50 MG CAPSULE PO PRN (13:30)
[2018-07-17] MEDS ORDERED: MAGNESIUM HYDROXIDE SUSPENSION 30 ML UDCUP PO PRN ×2 (13:30→15:15)
[2018-07-17] MEDS ORDERED: MAG HYDROX/AL HYDROX/SIMETH ES 30 ML SUSPENSION UDCUP PO PRN ×2 (13:30→15:15)
[2018-07-17] MEDS ORDERED: TUBERCULIN, PURIFIED PROTEIN DERIVATIVE 5 TU/0.1 ML SYG ID ONE (13:30)
[2018-07-17] MEDS ORDERED: GuaiFENesin/D-METHORPHAN [SUGAR-FREE] 200-20MG/10 ML SYRUP UDCUP PO PRN (13:30)
[2018-07-17] MEDS ORDERED: PROMETHAZINE HCL 25 MG TABLET PO PRN (13:30)
[2018-07-17 13:49] VITALS: BP 138/94
[2018-07-17] MEDS ORDERED: ONDANSETRON HCL 4 MG TABLET PO PRN (15:15)
[2018-07-17] MEDS ORDERED: ALBUTEROL SULFATE HFA 90 MCG/PUFF 8 GM INHALER IH PRN (15:15)
[2018-07-17] MEDS ORDERED: CloNIDine HCL 0.1 MG TABLET PO PRN (15:15)
[2018-07-17] MEDS ORDERED: PETROLATUM,WHITE 71 GM JELLY TP PRN (15:15)
[2018-07-17] MEDS ORDERED: BACITRACIN 28.4 GM OINTMENT TP PRN (15:15)
[2018-07-17] MEDS ORDERED: BENZOCAINE/MENTHOL LOZENGE MM PRN (15:15)
[2018-07-17] MEDS ORDERED: IBUPROFEN 600 MG TABLET PO PRN (15:15)
[2018-07-17] MEDS: LevETIRAcetam 500 MG TABLET PO SCH (16:51)
[2018-07-17] MEDS: THIAMINE HCL 100 MG TABLET PO SCH (16:51)
[2018-07-17] MEDS ORDERED: HALOPERIDOL 10 MG TABLET PO SCH (21:00)
[2018-07-17] MEDS: ZOLPIDEM TARTRATE 10 MG TABLET PO PRN (21:08)
[2018-07-18 06:33] VITALS: BP 132/86
[2018-07-18 08:08] VITALS: BP 124/80
[2018-07-18] MEDS: FOLIC ACID 1 MG TABLET PO SCH (09:20)
[2018-07-18] MEDS: OMEPRAZOLE 20 MG CAPSULE PO SCH (09:21)
[2018-07-18] MEDS: DOCUSATE SODIUM 100 MG CAPSULE PO SCH (09:21)
[2018-07-18] MEDS: NALTREXONE HCL 50 MG TABLET PO SCH (09:21)
[2018-07-18] MEDS: MULTIVITAMINS WITH MINERALS, THERAPEUTIC TABLET PO SCH (09:21)
[2018-07-18] MEDS: THIAMINE HCL 100 MG TABLET PO SCH ×2 (09:21→16:43)
[2018-07-18] MEDS: LevETIRAcetam 500 MG TABLET PO SCH ×2 (09:21→16:43)
[2018-07-18] MEDS: HALOPERIDOL 5 MG TABLET PO PRN ×2 (09:22→16:43)
[2018-07-18] MEDS: LORazepam 2 MG TABLET PO PRN ×3 (09:22→21:16)
[2018-07-18] MEDS: EMTRICITABINE/TENOFOVIR 200-300 MG TABLET PO SCH (09:22)
[2018-07-18 16:00] VITALS: BP 129/88
[2018-07-18] MEDS: TRIHEXYPHENIDYL HCL 5 MG TABLET PO SCH (16:49)
[2018-07-18] MEDS: ZOLPIDEM TARTRATE 10 MG TABLET PO PRN (20:29)
[2018-07-18] MEDS: HALOPERIDOL 10 MG TABLET PO SCH (20:29)
[2018-07-19 00:07] VITALS: BP 126/89
[2018-07-19 08:34] VITALS: BP 111/77
[2018-07-19] MEDS: TRIHEXYPHENIDYL HCL 5 MG TABLET PO SCH ×3 (08:42→16:08)
[2018-07-19] MEDS: OMEPRAZOLE 20 MG CAPSULE PO SCH (08:42)
[2018-07-19] MEDS: EMTRICITABINE/TENOFOVIR 200-300 MG TABLET PO SCH (08:42)
[2018-07-19] MEDS: DOCUSATE SODIUM 100 MG CAPSULE PO SCH (08:42)
[2018-07-19] MEDS: NALTREXONE HCL 50 MG TABLET PO SCH (08:42)
[2018-07-19] MEDS: LevETIRAcetam 500 MG TABLET PO SCH ×2 (08:42→16:08)
[2018-07-19] MEDS: THIAMINE HCL 100 MG TABLET PO SCH ×2 (08:43→16:08)
[2018-07-19] MEDS: LORazepam 2 MG TABLET PO PRN ×2 (08:43→12:59)
[2018-07-19] MEDS: HALOPERIDOL 5 MG TABLET PO PRN ×2 (08:43→12:59)
[2018-07-19] MEDS: MULTIVITAMINS WITH MINERALS, THERAPEUTIC TABLET PO SCH (08:43)
[2018-07-19] MEDS: FOLIC ACID 1 MG TABLET PO SCH (08:43)
[2018-07-19 16:12] VITALS: BP 136/81
[2018-07-19] MEDS: ZOLPIDEM TARTRATE 10 MG TABLET PO PRN (20:23)
[2018-07-19] MEDS: HALOPERIDOL 10 MG TABLET PO SCH (20:24)
[2018-07-20 00:03] VITALS: BP 121/79
[2018-07-20] MEDS: LORazepam 2 MG TABLET PO PRN ×3 (06:45→16:18)
[2018-07-20] MEDS: HALOPERIDOL 5 MG TABLET PO PRN ×3 (06:45→16:18)
[2018-07-20] MEDS: MULTIVITAMINS WITH MINERALS, THERAPEUTIC TABLET PO SCH (08:03)
[2018-07-20] MEDS: OMEPRAZOLE 20 MG CAPSULE PO SCH (08:03)
[2018-07-20] MEDS: THIAMINE HCL 100 MG TABLET PO SCH ×2 (08:03→16:18)
[2018-07-20] MEDS: LevETIRAcetam 500 MG TABLET PO SCH ×2 (08:03→16:18)
[2018-07-20] MEDS: TRIHEXYPHENIDYL HCL 5 MG TABLET PO SCH ×3 (08:03→16:18)
[2018-07-20] MEDS: FOLIC ACID 1 MG TABLET PO SCH (08:03)
[2018-07-20] MEDS: EMTRICITABINE/TENOFOVIR 200-300 MG TABLET PO SCH (08:03)
[2018-07-20] MEDS: NALTREXONE HCL 50 MG TABLET PO SCH (08:03)
[2018-07-20] MEDS: DOCUSATE SODIUM 100 MG CAPSULE PO SCH (08:04)
[2018-07-20 08:08] VITALS: BP 137/90
[2018-07-20 16:23] VITALS: BP 129/92
[2018-07-20] MEDS ORDERED: HALOPERIDOL LACTATE 5 MG/ML VIAL ONE (18:36)
[2018-07-20] MEDS ORDERED: LORazepam 2 MG/ML VIAL ONE (18:36)
[2018-07-20] MEDS ORDERED: DiphenhydrAMINE HCL 50 MG/ML VIAL ONE (18:36)
[2018-07-20] MEDS ORDERED: DiphenhydrAMINE HCL 50 MG/ML VIAL IM ONE (18:45)
[2018-07-20] MEDS ORDERED: LORazepam 2 MG/ML VIAL IM ONE (18:45)
[2018-07-20] MEDS ORDERED: HALOPERIDOL LACTATE 5 MG/ML VIAL IM ONE (18:45)
[2018-07-20] MEDS: HALOPERIDOL 10 MG TABLET PO SCH (20:13)
[2018-07-21 05:21] VITALS: BP 131/74
[2018-07-21 08:08] VITALS: BP 138/90
[2018-07-21] MEDS: TRIHEXYPHENIDYL HCL 5 MG TABLET PO SCH ×3 (08:48→16:16)
[2018-07-21] MEDS: THIAMINE HCL 100 MG TABLET PO SCH ×2 (08:49→16:16)
[2018-07-21] MEDS: NALTREXONE HCL 50 MG TABLET PO SCH (08:49)
[2018-07-21] MEDS: DOCUSATE SODIUM 100 MG CAPSULE PO SCH (08:49)
[2018-07-21] MEDS: LevETIRAcetam 500 MG TABLET PO SCH ×2 (08:49→16:16)
[2018-07-21] MEDS: FOLIC ACID 1 MG TABLET PO SCH (08:49)
[2018-07-21] MEDS: MULTIVITAMINS WITH MINERALS, THERAPEUTIC TABLET PO SCH (08:49)
[2018-07-21] MEDS: OMEPRAZOLE 20 MG CAPSULE PO SCH (08:49)
[2018-07-21] MEDS: EMTRICITABINE/TENOFOVIR 200-300 MG TABLET PO SCH (08:49)
[2018-07-21] MEDS: LORazepam 2 MG TABLET PO PRN ×2 (08:50→16:16)
[2018-07-21] MEDS: HALOPERIDOL 5 MG TABLET PO PRN ×2 (08:50→16:16)
[2018-07-21 17:06] VITALS: BP 132/77
[2018-07-21] MEDS: HALOPERIDOL 10 MG TABLET PO SCH (20:18)
[2018-07-22 01:34] VITALS: BP 127/81
[2018-07-22 08:09] VITALS: BP 133/92
[2018-07-22] MEDS: NALTREXONE HCL 50 MG TABLET PO SCH ×2 (09:00→09:29)
[2018-07-22] MEDS: DOCUSATE SODIUM 100 MG CAPSULE PO SCH ×2 (09:00→09:29)
[2018-07-22] MEDS: MULTIVITAMINS WITH MINERALS, THERAPEUTIC TABLET PO SCH ×2 (09:00→09:29)
[2018-07-22] MEDS: FOLIC ACID 1 MG TABLET PO SCH ×2 (09:00→09:29)
[2018-07-22] MEDS: TRIHEXYPHENIDYL HCL 5 MG TABLET PO SCH ×4 (09:00→16:15)
[2018-07-22] MEDS: LevETIRAcetam 500 MG TABLET PO SCH ×3 (09:00→16:15)
[2018-07-22] MEDS: THIAMINE HCL 100 MG TABLET PO SCH ×3 (09:00→16:15)
[2018-07-22] MEDS: OMEPRAZOLE 20 MG CAPSULE PO SCH ×2 (09:00→09:29)
[2018-07-22] MEDS: LORazepam 2 MG TABLET PO PRN ×3 (09:29→20:27)
[2018-07-22] MEDS: HALOPERIDOL 5 MG TABLET PO PRN ×2 (09:29→16:16)
[2018-07-22] MEDS: EMTRICITABINE/TENOFOVIR 200-300 MG TABLET PO SCH (09:29)
[2018-07-22 16:26] VITALS: BP 130/86
[2018-07-22] MEDS: HALOPERIDOL 10 MG TABLET PO SCH (20:26)
[2018-07-22] MEDS: ZOLPIDEM TARTRATE 10 MG TABLET PO PRN (20:27)
[2018-07-23 03:55] VITALS: BP 130/77
[2018-07-23] MEDS: EMTRICITABINE/TENOFOVIR 200-300 MG TABLET PO SCH (08:08)
[2018-07-23] MEDS: LORazepam 2 MG TABLET PO PRN ×2 (08:08→16:47)
[2018-07-23] MEDS: DOCUSATE SODIUM 100 MG CAPSULE PO SCH (08:09)
[2018-07-23] MEDS: FOLIC ACID 1 MG TABLET PO SCH (08:09)
[2018-07-23] MEDS: OMEPRAZOLE 20 MG CAPSULE PO SCH (08:09)
[2018-07-23] MEDS: TRIHEXYPHENIDYL HCL 5 MG TABLET PO SCH ×3 (08:09→16:47)
[2018-07-23] MEDS: HALOPERIDOL 5 MG TABLET PO PRN ×2 (08:09→16:47)
[2018-07-23] MEDS: MULTIVITAMINS WITH MINERALS, THERAPEUTIC TABLET PO SCH (08:09)
[2018-07-23] MEDS: LevETIRAcetam 500 MG TABLET PO SCH ×2 (08:09→16:47)
[2018-07-23] MEDS: NALTREXONE HCL 50 MG TABLET PO SCH (08:09)
[2018-07-23] MEDS: THIAMINE HCL 100 MG TABLET PO SCH ×2 (08:09→16:47)
[2018-07-23 16:13] VITALS: BP 132/76
[2018-07-23] MEDS: HALOPERIDOL 10 MG TABLET PO SCH (20:28)
[2018-07-23] MEDS: ZOLPIDEM TARTRATE 10 MG TABLET PO PRN (20:28)
[2018-07-24 02:48] VITALS: BP 125/76
[2018-07-24 08:12] VITALS: BP 115/76
[2018-07-24] MEDS: OMEPRAZOLE 20 MG CAPSULE PO SCH (08:56)
[2018-07-24] MEDS: DOCUSATE SODIUM 100 MG CAPSULE PO SCH (08:56)
[2018-07-24] MEDS: MULTIVITAMINS WITH MINERALS, THERAPEUTIC TABLET PO SCH (08:56)
[2018-07-24] MEDS: HALOPERIDOL 5 MG TABLET PO PRN (08:56)
[2018-07-24] MEDS: EMTRICITABINE/TENOFOVIR 200-300 MG TABLET PO SCH (08:56)
[2018-07-24] MEDS: TRIHEXYPHENIDYL HCL 5 MG TABLET PO SCH ×3 (08:57→16:14)
[2018-07-24] MEDS: LevETIRAcetam 500 MG TABLET PO SCH ×2 (08:57→16:14)
[2018-07-24] MEDS: NALTREXONE HCL 50 MG TABLET PO SCH (08:57)
[2018-07-24] MEDS: FOLIC ACID 1 MG TABLET PO SCH (08:57)
[2018-07-24] MEDS: LORazepam 2 MG TABLET PO PRN ×2 (08:57→16:14)
[2018-07-24] MEDS: THIAMINE HCL 100 MG TABLET PO SCH ×2 (08:57→16:14)
[2018-07-24 16:24] VITALS: BP 110/76
[2018-07-24] MEDS: HALOPERIDOL 10 MG TABLET PO SCH (20:31)
[2018-07-25 08:15] VITALS: BP 120/78
[2018-07-25] MEDS: DOCUSATE SODIUM 100 MG CAPSULE PO SCH (08:36)
[2018-07-25] MEDS: TRIHEXYPHENIDYL HCL 5 MG TABLET PO SCH ×3 (08:37→16:25)
[2018-07-25] MEDS: THIAMINE HCL 100 MG TABLET PO SCH ×2 (08:37→16:25)
[2018-07-25] MEDS: NALTREXONE HCL 50 MG TABLET PO SCH (08:37)
[2018-07-25] MEDS: FOLIC ACID 1 MG TABLET PO SCH (08:37)
[2018-07-25] MEDS: LevETIRAcetam 500 MG TABLET PO SCH ×2 (08:37→16:25)
[2018-07-25] MEDS: MULTIVITAMINS WITH MINERALS, THERAPEUTIC TABLET PO SCH (08:37)
[2018-07-25] MEDS: OMEPRAZOLE 20 MG CAPSULE PO SCH (08:37)
[2018-07-25] MEDS: EMTRICITABINE/TENOFOVIR 200-300 MG TABLET PO SCH (08:38)
[2018-07-25 16:00] VITALS: BP 123/74
[2018-07-25] MEDS: LORazepam 2 MG TABLET PO PRN (16:25)
[2018-07-25] MEDS: HALOPERIDOL 10 MG TABLET PO SCH (20:38)
[2018-07-26 08:13] VITALS: BP 122/88
[2018-07-26] MEDS: MULTIVITAMINS WITH MINERALS, THERAPEUTIC TABLET PO SCH (08:16)
[2018-07-26] MEDS: DOCUSATE SODIUM 100 MG CAPSULE PO SCH (08:16)
[2018-07-26] MEDS: TRIHEXYPHENIDYL HCL 5 MG TABLET PO SCH ×3 (08:16→16:58)
[2018-07-26] MEDS: OMEPRAZOLE 20 MG CAPSULE PO SCH (08:16)
[2018-07-26] MEDS: LevETIRAcetam 500 MG TABLET PO SCH ×2 (08:16→16:58)
[2018-07-26] MEDS: EMTRICITABINE/TENOFOVIR 200-300 MG TABLET PO SCH (08:16)
[2018-07-26] MEDS: FOLIC ACID 1 MG TABLET PO SCH (08:16)
[2018-07-26] MEDS: NALTREXONE HCL 50 MG TABLET PO SCH (08:17)
[2018-07-26] MEDS: THIAMINE HCL 100 MG TABLET PO SCH ×2 (08:17→16:58)
[2018-07-26] MEDS: LORazepam 2 MG TABLET PO PRN ×2 (12:28→16:58)
[2018-07-26 18:50] VITALS: BP 128/80
[2018-07-26] MEDS: HALOPERIDOL 10 MG TABLET PO SCH (20:27)
[2018-07-27 05:07] VITALS: BP 101/73
[2018-07-27] MEDS: HALOPERIDOL 5 MG TABLET PO PRN ×2 (08:28→16:56)
[2018-07-27] MEDS: TRIHEXYPHENIDYL HCL 5 MG TABLET PO SCH ×3 (08:28→16:54)
[2018-07-27] MEDS: OMEPRAZOLE 20 MG CAPSULE PO SCH (08:28)
[2018-07-27] MEDS: FOLIC ACID 1 MG TABLET PO SCH (08:28)
[2018-07-27] MEDS: NALTREXONE HCL 50 MG TABLET PO SCH (08:28)
[2018-07-27] MEDS: LevETIRAcetam 500 MG TABLET PO SCH ×2 (08:28→16:54)
[2018-07-27] MEDS: MULTIVITAMINS WITH MINERALS, THERAPEUTIC TABLET PO SCH (08:28)
[2018-07-27] MEDS: DOCUSATE SODIUM 100 MG CAPSULE PO SCH (08:29)
[2018-07-27] MEDS: THIAMINE HCL 100 MG TABLET PO SCH (08:29)
[2018-07-27] MEDS: LORazepam 2 MG TABLET PO PRN ×2 (08:29→16:56)
[2018-07-27] MEDS: EMTRICITABINE/TENOFOVIR 200-300 MG TABLET PO SCH (08:29)
[2018-07-27 08:31] VITALS: BP 130/79
[2018-07-27 16:13] VITALS: BP 108/66
[2018-07-27] MEDS: ZOLPIDEM TARTRATE 10 MG TABLET PO PRN (20:28)
[2018-07-27] MEDS: HALOPERIDOL 10 MG TABLET PO SCH (20:28)
[2018-07-28 01:02] VITALS: BP 118/78
[2018-07-28] MEDS: TRIHEXYPHENIDYL HCL 5 MG TABLET PO SCH ×3 (08:45→16:41)
[2018-07-28] MEDS: NALTREXONE HCL 50 MG TABLET PO SCH (08:45)
[2018-07-28] MEDS: HALOPERIDOL 5 MG TABLET PO PRN ×2 (08:45→16:41)
[2018-07-28] MEDS: EMTRICITABINE/TENOFOVIR 200-300 MG TABLET PO SCH (08:45)
[2018-07-28] MEDS: DOCUSATE SODIUM 100 MG CAPSULE PO SCH (08:45)
[2018-07-28] MEDS: MULTIVITAMINS WITH MINERALS, THERAPEUTIC TABLET PO SCH (08:45)
[2018-07-28] MEDS: LORazepam 2 MG TABLET PO PRN ×2 (08:45→16:41)
[2018-07-28] MEDS: LevETIRAcetam 500 MG TABLET PO SCH ×2 (08:45→16:40)
[2018-07-28] MEDS: OMEPRAZOLE 20 MG CAPSULE PO SCH (08:45)
[2018-07-28 08:53] VITALS: BP 118/78
[2018-07-28 16:00] VITALS: BP 112/71
[2018-07-28] MEDS: HALOPERIDOL 10 MG TABLET PO SCH (20:19)
[2018-07-28] MEDS: ZOLPIDEM TARTRATE 10 MG TABLET PO PRN (20:19)
[2018-07-29 00:18] VITALS: BP 117/77
[2018-07-29 08:08] VITALS: BP 120/70
[2018-07-29] MEDS: MULTIVITAMINS WITH MINERALS, THERAPEUTIC TABLET PO SCH (08:25)
[2018-07-29] MEDS: NALTREXONE HCL 50 MG TABLET PO SCH (08:25)
[2018-07-29] MEDS: DOCUSATE SODIUM 100 MG CAPSULE PO SCH (08:25)
[2018-07-29] MEDS: EMTRICITABINE/TENOFOVIR 200-300 MG TABLET PO SCH (08:25)
[2018-07-29] MEDS: LevETIRAcetam 500 MG TABLET PO SCH ×2 (08:25→17:00)
[2018-07-29] MEDS: TRIHEXYPHENIDYL HCL 5 MG TABLET PO SCH ×3 (08:25→17:00)
[2018-07-29] MEDS: OMEPRAZOLE 20 MG CAPSULE PO SCH (08:25)
[2018-07-29] MEDS: LORazepam 2 MG TABLET PO PRN ×2 (08:25→17:00)
[2018-07-29] MEDS: HALOPERIDOL 5 MG TABLET PO PRN (08:26)
[2018-07-29 16:00] VITALS: BP 118/80
[2018-07-29] MEDS: ZOLPIDEM TARTRATE 10 MG TABLET PO PRN (20:36)
[2018-07-29] MEDS: HALOPERIDOL 10 MG TABLET PO SCH (20:36)
[2018-07-30 00:20] VITALS: BP 118/75
[2018-07-30] MEDS: MULTIVITAMINS WITH MINERALS, THERAPEUTIC TABLET PO SCH (08:04)
[2018-07-30] MEDS: DOCUSATE SODIUM 100 MG CAPSULE PO SCH (08:04)
[2018-07-30] MEDS: LevETIRAcetam 500 MG TABLET PO SCH ×2 (08:04→16:12)
[2018-07-30] MEDS: NALTREXONE HCL 50 MG TABLET PO SCH (08:04)
[2018-07-30] MEDS: OMEPRAZOLE 20 MG CAPSULE PO SCH (08:04)
[2018-07-30] MEDS: TRIHEXYPHENIDYL HCL 5 MG TABLET PO SCH ×3 (08:04→16:12)
[2018-07-30] MEDS: EMTRICITABINE/TENOFOVIR 200-300 MG TABLET PO SCH (08:05)
[2018-07-30 08:09] VITALS: BP 125/78
[2018-07-30] MEDS: HALOPERIDOL 5 MG TABLET PO PRN (09:09)
[2018-07-30] MEDS: LORazepam 2 MG TABLET PO PRN ×3 (09:10→23:08)
[2018-07-30 16:00] VITALS: BP 117/80
[2018-07-30] MEDS: ZOLPIDEM TARTRATE 10 MG TABLET PO PRN (20:18)
[2018-07-30] MEDS: HALOPERIDOL 10 MG TABLET PO SCH (20:18)
[2018-07-31 04:38] VITALS: BP 115/84
[2018-07-31 08:27] VITALS: BP 114/72
[2018-07-31] MEDS: TRIHEXYPHENIDYL HCL 5 MG TABLET PO SCH ×3 (08:40→16:43)
[2018-07-31] MEDS: OMEPRAZOLE 20 MG CAPSULE PO SCH (08:40)
[2018-07-31] MEDS: DOCUSATE SODIUM 100 MG CAPSULE PO SCH (08:40)
[2018-07-31] MEDS: HALOPERIDOL 5 MG TABLET PO PRN (08:41)
[2018-07-31] MEDS: NALTREXONE HCL 50 MG TABLET PO SCH (08:41)
[2018-07-31] MEDS: MULTIVITAMINS WITH MINERALS, THERAPEUTIC TABLET PO SCH (08:41)
[2018-07-31] MEDS: LORazepam 2 MG TABLET PO PRN ×2 (08:41→16:43)
[2018-07-31] MEDS: LevETIRAcetam 500 MG TABLET PO SCH ×2 (08:41→16:43)
[2018-07-31] MEDS: EMTRICITABINE/TENOFOVIR 200-300 MG TABLET PO SCH (08:55)
[2018-07-31 16:00] VITALS: BP 117/89
[2018-07-31] MEDS: HALOPERIDOL 10 MG TABLET PO SCH (20:27)
[2018-08-01 07:09] VITALS: BP 116/88
[2018-08-01 08:11] VITALS: BP 111/72
[2018-08-01] MEDS: TRIHEXYPHENIDYL HCL 5 MG TABLET PO SCH ×3 (08:22→16:07)
[2018-08-01] MEDS: OMEPRAZOLE 20 MG CAPSULE PO SCH (08:22)
[2018-08-01] MEDS: DOCUSATE SODIUM 100 MG CAPSULE PO SCH (08:22)
[2018-08-01] MEDS: EMTRICITABINE/TENOFOVIR 200-300 MG TABLET PO SCH (08:22)
[2018-08-01] MEDS: MULTIVITAMINS WITH MINERALS, THERAPEUTIC TABLET PO SCH (08:22)
[2018-08-01] MEDS: LORazepam 2 MG TABLET PO PRN ×2 (08:22→16:07)
[2018-08-01] MEDS: LevETIRAcetam 500 MG TABLET PO SCH ×2 (08:22→16:07)
[2018-08-01] MEDS: NALTREXONE HCL 50 MG TABLET PO SCH (08:24)
[2018-08-01 16:00] VITALS: BP 126/87
[2018-08-01] MEDS: HALOPERIDOL 10 MG TABLET PO SCH (20:10)
[2018-08-02 00:30] VITALS: BP 118/77
[2018-08-02] MEDS: HALOPERIDOL 5 MG TABLET PO PRN ×2 (06:50→16:47)
[2018-08-02] MEDS: LORazepam 2 MG TABLET PO PRN ×2 (06:50→16:47)
[2018-08-02] MEDS: NALTREXONE HCL 50 MG TABLET PO SCH (09:05)
[2018-08-02] MEDS: OMEPRAZOLE 20 MG CAPSULE PO SCH (09:05)
[2018-08-02] MEDS: DOCUSATE SODIUM 100 MG CAPSULE PO SCH (09:05)
[2018-08-02] MEDS: TRIHEXYPHENIDYL HCL 5 MG TABLET PO SCH ×3 (09:05→16:46)
[2018-08-02] MEDS: MULTIVITAMINS WITH MINERALS, THERAPEUTIC TABLET PO SCH (09:05)
[2018-08-02] MEDS: LevETIRAcetam 500 MG TABLET PO SCH ×2 (09:05→16:46)
[2018-08-02] MEDS: EMTRICITABINE/TENOFOVIR 200-300 MG TABLET PO SCH (09:05)
[2018-08-02 09:16] VITALS: BP 124/77
[2018-08-02 20:01] VITALS: BP 134/90
[2018-08-02] MEDS: ZOLPIDEM TARTRATE 10 MG TABLET PO PRN (20:44)
[2018-08-02] MEDS: HALOPERIDOL 10 MG TABLET PO SCH (20:44)
[2018-08-03 03:43] VITALS: BP 117/80
[2018-08-03 08:05] VITALS: BP 120/80
[2018-08-03] MEDS: LevETIRAcetam 500 MG TABLET PO SCH ×2 (08:12→17:02)
[2018-08-03] MEDS: DOCUSATE SODIUM 100 MG CAPSULE PO SCH (08:12)
[2018-08-03] MEDS: LORazepam 2 MG TABLET PO PRN ×3 (08:12→21:04)
[2018-08-03] MEDS: MULTIVITAMINS WITH MINERALS, THERAPEUTIC TABLET PO SCH (08:12)
[2018-08-03] MEDS: OMEPRAZOLE 20 MG CAPSULE PO SCH (08:12)
[2018-08-03] MEDS: HALOPERIDOL 5 MG TABLET PO PRN (08:12)
[2018-08-03] MEDS: NALTREXONE HCL 50 MG TABLET PO SCH (08:12)
[2018-08-03] MEDS: TRIHEXYPHENIDYL HCL 5 MG TABLET PO SCH ×3 (08:12→17:02)
[2018-08-03] MEDS: EMTRICITABINE/TENOFOVIR 200-300 MG TABLET PO SCH (08:12)
[2018-08-03 17:38] VITALS: BP 124/86
[2018-08-03] MEDS: HALOPERIDOL 10 MG TABLET PO SCH (21:04)
[2018-08-03] MEDS: ZOLPIDEM TARTRATE 10 MG TABLET PO PRN (21:04)
[2018-08-04 03:30] VITALS: BP 122/69
[2018-08-04 08:10] VITALS: BP 131/94
[2018-08-04] MEDS: OMEPRAZOLE 20 MG CAPSULE PO SCH (09:23)
[2018-08-04] MEDS: LevETIRAcetam 500 MG TABLET PO SCH ×2 (09:23→16:09)
[2018-08-04] MEDS: TRIHEXYPHENIDYL HCL 5 MG TABLET PO SCH ×3 (09:23→16:09)
[2018-08-04] MEDS: MULTIVITAMINS WITH MINERALS, THERAPEUTIC TABLET PO SCH (09:23)
[2018-08-04] MEDS: NALTREXONE HCL 50 MG TABLET PO SCH (09:23)
[2018-08-04] MEDS: DOCUSATE SODIUM 100 MG CAPSULE PO SCH (09:24)
[2018-08-04] MEDS: EMTRICITABINE/TENOFOVIR 200-300 MG TABLET PO SCH (09:24)
[2018-08-04] MEDS: LORazepam 2 MG TABLET PO PRN ×2 (16:09→20:36)
[2018-08-04 16:10] VITALS: BP 117/84
[2018-08-04] MEDS: ZOLPIDEM TARTRATE 10 MG TABLET PO PRN (20:35)
[2018-08-04] MEDS: HALOPERIDOL 10 MG TABLET PO SCH (20:36)
[2018-08-05 03:00] VITALS: BP 110/78
[2018-08-05] MEDS: EMTRICITABINE/TENOFOVIR 200-300 MG TABLET PO SCH (08:19)
[2018-08-05] MEDS: DOCUSATE SODIUM 100 MG CAPSULE PO SCH (08:19)
[2018-08-05] MEDS: NALTREXONE HCL 50 MG TABLET PO SCH (08:19)
[2018-08-05] MEDS: OMEPRAZOLE 20 MG CAPSULE PO SCH (08:19)
[2018-08-05] MEDS: LORazepam 2 MG TABLET PO PRN ×3 (08:20→20:36)
[2018-08-05] MEDS: LevETIRAcetam 500 MG TABLET PO SCH ×2 (08:20→16:24)
[2018-08-05] MEDS: MULTIVITAMINS WITH MINERALS, THERAPEUTIC TABLET PO SCH (08:20)
[2018-08-05] MEDS: TRIHEXYPHENIDYL HCL 5 MG TABLET PO SCH ×3 (08:20→16:24)
[2018-08-05 08:34] VITALS: BP 109/65
[2018-08-05 16:00] VITALS: BP 132/80
[2018-08-05] MEDS: HALOPERIDOL 10 MG TABLET PO SCH (20:35)
[2018-08-05] MEDS: ZOLPIDEM TARTRATE 10 MG TABLET PO PRN (20:36)
[2018-08-06 04:15] VITALS: BP 127/73
[2018-08-06 08:13] VITALS: BP 131/95
[2018-08-06] MEDS: HALOPERIDOL 5 MG TABLET PO PRN ×2 (08:47→16:35)
[2018-08-06] MEDS: MULTIVITAMINS WITH MINERALS, THERAPEUTIC TABLET PO SCH (08:47)
[2018-08-06] MEDS: LORazepam 2 MG TABLET PO PRN ×2 (08:47→16:35)
[2018-08-06] MEDS: OMEPRAZOLE 20 MG CAPSULE PO SCH (08:48)
[2018-08-06] MEDS: EMTRICITABINE/TENOFOVIR 200-300 MG TABLET PO SCH (08:48)
[2018-08-06] MEDS: DOCUSATE SODIUM 100 MG CAPSULE PO SCH (08:48)
[2018-08-06] MEDS: NALTREXONE HCL 50 MG TABLET PO SCH (08:48)
[2018-08-06] MEDS: TRIHEXYPHENIDYL HCL 5 MG TABLET PO SCH ×3 (08:48→16:35)
[2018-08-06] MEDS: LevETIRAcetam 500 MG TABLET PO SCH ×2 (08:48→16:35)
[2018-08-06 16:25] VITALS: BP 117/87
[2018-08-06] MEDS: HALOPERIDOL 10 MG TABLET PO SCH (20:19)
[2018-08-06] MEDS: ZOLPIDEM TARTRATE 10 MG TABLET PO PRN (20:19)
[2018-08-07 05:57] VITALS: BP 120/62
[2018-08-07 08:07] VITALS: BP 118/82
[2018-08-07] MEDS: EMTRICITABINE/TENOFOVIR 200-300 MG TABLET PO SCH (08:59)
[2018-08-07] MEDS: LevETIRAcetam 500 MG TABLET PO SCH ×2 (08:59→16:39)
[2018-08-07] MEDS: OMEPRAZOLE 20 MG CAPSULE PO SCH (08:59)
[2018-08-07] MEDS: TRIHEXYPHENIDYL HCL 5 MG TABLET PO SCH ×3 (08:59→16:39)
[2018-08-07] MEDS: DOCUSATE SODIUM 100 MG CAPSULE PO SCH (08:59)
[2018-08-07] MEDS: NALTREXONE HCL 50 MG TABLET PO SCH (08:59)
[2018-08-07] MEDS: MULTIVITAMINS WITH MINERALS, THERAPEUTIC TABLET PO SCH (08:59)
[2018-08-07] MEDS ORDERED: ASPIRIN 81 MG EC TABLET PO SCH (09:00)
[2018-08-07 16:00] VITALS: BP 121/87
[2018-08-07] MEDS: LORazepam 2 MG TABLET PO PRN ×2 (16:39→20:53)
[2018-08-07] MEDS: ZOLPIDEM TARTRATE 10 MG TABLET PO PRN (20:53)
[2018-08-07] MEDS: HALOPERIDOL 10 MG TABLET PO SCH (20:53)
[2018-08-08 05:50] VITALS: BP 122/75
[2018-08-08 08:08] VITALS: BP 127/92
[2018-08-08] MEDS: LevETIRAcetam 500 MG TABLET PO SCH ×2 (08:31→16:15)
[2018-08-08] MEDS: TRIHEXYPHENIDYL HCL 5 MG TABLET PO SCH ×3 (08:32→16:15)
[2018-08-08] MEDS: NALTREXONE HCL 50 MG TABLET PO SCH (08:32)
[2018-08-08] MEDS: DOCUSATE SODIUM 100 MG CAPSULE PO SCH (08:32)
[2018-08-08] MEDS: EMTRICITABINE/TENOFOVIR 200-300 MG TABLET PO SCH (08:32)
[2018-08-08] MEDS: OMEPRAZOLE 20 MG CAPSULE PO SCH (08:32)
[2018-08-08] MEDS: MULTIVITAMINS WITH MINERALS, THERAPEUTIC TABLET PO SCH (08:32)
[2018-08-08 16:05] VITALS: BP 122/88
[2018-08-08] MEDS: LORazepam 2 MG TABLET PO PRN ×2 (16:16→20:16)
[2018-08-08] MEDS: HALOPERIDOL 10 MG TABLET PO SCH (20:15)
[2018-08-08] MEDS: ZOLPIDEM TARTRATE 10 MG TABLET PO PRN (20:16)
[2018-08-09 04:21] VITALS: BP 150/82
[2018-08-09] MEDS: NALTREXONE HCL 50 MG TABLET PO SCH (08:03)
[2018-08-09] MEDS: TRIHEXYPHENIDYL HCL 5 MG TABLET PO SCH ×3 (08:03→16:27)
[2018-08-09] MEDS: EMTRICITABINE/TENOFOVIR 200-300 MG TABLET PO SCH (08:03)
[2018-08-09] MEDS: MULTIVITAMINS WITH MINERALS, THERAPEUTIC TABLET PO SCH (08:03)
[2018-08-09] MEDS: OMEPRAZOLE 20 MG CAPSULE PO SCH (08:03)
[2018-08-09] MEDS: HALOPERIDOL 5 MG TABLET PO PRN (08:03)
[2018-08-09] MEDS: LORazepam 2 MG TABLET PO PRN ×3 (08:03→16:27)
[2018-08-09] MEDS: LevETIRAcetam 500 MG TABLET PO SCH ×2 (08:03→16:27)
[2018-08-09] MEDS: DOCUSATE SODIUM 100 MG CAPSULE PO SCH (08:03)
[2018-08-09 08:06] VITALS: BP 128/89
[2018-08-09 16:25] VITALS: BP 110/87
[2018-08-09] MEDS: HALOPERIDOL 10 MG TABLET PO SCH (20:17)
[2018-08-10 04:35] VITALS: BP 145/93
[2018-08-10 08:00] VITALS: BP 129/90
[2018-08-10] MEDS: MULTIVITAMINS WITH MINERALS, THERAPEUTIC TABLET PO SCH (08:33)
[2018-08-10] MEDS: DOCUSATE SODIUM 100 MG CAPSULE PO SCH (08:33)
[2018-08-10] MEDS: LevETIRAcetam 500 MG TABLET PO SCH ×2 (08:33→16:36)
[2018-08-10] MEDS: TRIHEXYPHENIDYL HCL 5 MG TABLET PO SCH ×4 (08:33→16:36)
[2018-08-10] MEDS: EMTRICITABINE/TENOFOVIR 200-300 MG TABLET PO SCH (08:33)
[2018-08-10] MEDS: NALTREXONE HCL 50 MG TABLET PO SCH (08:33)
[2018-08-10] MEDS: OMEPRAZOLE 20 MG CAPSULE PO SCH (08:33)
[2018-08-10 16:00] VITALS: BP 131/89
[2018-08-10] MEDS: LORazepam 2 MG TABLET PO PRN ×2 (16:36→20:36)
[2018-08-10] MEDS: ZOLPIDEM TARTRATE 10 MG TABLET PO PRN (20:35)
[2018-08-10] MEDS: HALOPERIDOL 10 MG TABLET PO SCH (20:35)
[2018-08-11 00:10] VITALS: BP 122/77
[2018-08-11 08:17] VITALS: BP 104/58
[2018-08-11] MEDS: TRIHEXYPHENIDYL HCL 5 MG TABLET PO SCH ×3 (08:42→16:28)
[2018-08-11] MEDS: EMTRICITABINE/TENOFOVIR 200-300 MG TABLET PO SCH (08:42)
[2018-08-11] MEDS: MULTIVITAMINS WITH MINERALS, THERAPEUTIC TABLET PO SCH (08:42)
[2018-08-11] MEDS: LevETIRAcetam 500 MG TABLET PO SCH ×2 (08:42→16:28)
[2018-08-11] MEDS: OMEPRAZOLE 20 MG CAPSULE PO SCH (08:42)
[2018-08-11] MEDS: NALTREXONE HCL 50 MG TABLET PO SCH (08:42)
[2018-08-11] MEDS: DOCUSATE SODIUM 100 MG CAPSULE PO SCH (08:43)
[2018-08-11] MEDS: LORazepam 2 MG TABLET PO PRN ×2 (16:28→20:33)
[2018-08-11 17:14] VITALS: BP 134/89
[2018-08-11] MEDS: ZOLPIDEM TARTRATE 10 MG TABLET PO PRN (20:33)
[2018-08-11] MEDS: HALOPERIDOL 10 MG TABLET PO SCH (20:33)
[2018-08-12 00:32] VITALS: BP 127/83
[2018-08-12 08:08] VITALS: BP 120/86
[2018-08-12] MEDS: NALTREXONE HCL 50 MG TABLET PO SCH (08:54)
[2018-08-12] MEDS: DOCUSATE SODIUM 100 MG CAPSULE PO SCH (08:54)
[2018-08-12] MEDS: LevETIRAcetam 500 MG TABLET PO SCH (08:54)
[2018-08-12] MEDS: TRIHEXYPHENIDYL HCL 5 MG TABLET PO SCH ×2 (08:54→12:28)
[2018-08-12] MEDS: OMEPRAZOLE 20 MG CAPSULE PO SCH (08:54)
[2018-08-12] MEDS: EMTRICITABINE/TENOFOVIR 200-300 MG TABLET PO SCH (08:54)
[2018-08-12] MEDS: MULTIVITAMINS WITH MINERALS, THERAPEUTIC TABLET PO SCH (08:54)
[2018-08-12] MEDS ORDERED: HALO10 PO (14:01)
[2018-08-12] MEDS ORDERED: TRIH5TAB2 PO (14:01)
[2018-08-12] MEDS ORDERED: NALT50TA6 PO (14:01)
== END 2018-08-12 15:00 | disposition home or self-care (01) | DRG 750 ==
LOC: EMS 19:56 → B3A 07-17 12:39
PROVIDERS: ADMIT Psychiatry & Neurology Psychiatry; ATTEND Psychiatry & Neurology Psychiatry
DX: F20.0 Paranoid schizophrenia (principal); B19.10 Unspecified viral hepatitis B without hepatic coma; D57.1 Sickle-cell disease without crisis; F12.90 Cannabis use, unspecified, uncomplicated; Z71.51 Drug abuse counseling and surveillance of drug abuser; F15.10 Other stimulant abuse, uncomplicated; F17.200 Nicotine dependence, unspecified, uncomplicated; Z71.6 Tobacco abuse counseling; G40.909 Epilepsy, unspecified, not intractable, without status epilepticus; G47.00 Insomnia, unspecified; J45.909 Unspecified asthma, uncomplicated; Z59.0 Homelessness; Z65.3 Problems related to other legal circumstances; Z88.0 Allergy status to penicillin; Z91.19 Patient's noncompliance with other medical treatment and regimen; F41.9 Anxiety disorder, unspecified; Z88.1 Allergy status to other antibiotic agents; Z88.2 Allergy status to sulfonamides; Z79.899 Other long term (current) drug therapy
CPT/HCPCS: 80074; 87081; 96372; 99285; G0480; J1200; J1630; J2060

== ENCOUNTER 2018-08-13 22:05 | Emergency (ER) | payer MEDICAID, OTHER ==
[~2018-08-13] VITALS: Ht 180.3 cm; Wt 61.4 kg
[~2018-08-13 22:05] MED LIST changes: -BENZ0.5T44 PO; -HALO5TAB2 PO; +NALT50TA6 PO; +TRIH5TAB2 PO
[2018-08-13 23:25] LABS: EOSINOPHILS % (AUTO) 6.1 % (1.0-6.0); HEMATOCRIT 45.6 % (41-53); HEMOGLOBIN 16.2 g/dL (13.5-17.5); LYMPHOCYTES # (AUTO) 1.4 K/uL (1.0-4.8); LYMPHOCYTES % (AUTO) 29.4 % (22.0-44.0); MEAN CORPUSCULAR HEMOGLOBIN 29.4 pg (26.0-34.0); MEAN CORPUSCULAR HGB CONC 35.5 G/dL (31.0-37.0); MEAN CORPUSCULAR VOLUME 83 fL (80-100); MONOCYTES # (AUTO) 0.7 K/uL (0.1-1.0); MONOCYTES % (AUTO) 15.3 % (2.0-9.0); NEUTROPHILS # (AUTO) 2.3 K/uL (1.8-7.7); NEUTROPHILS % (AUTO) 48.2 % (40.0-70.0); PLATELET COUNT (AUTO) 199 K/uL (150-450); RED BLOOD CELL COUNT(AUTO) 5.49 MIL/uL (4.50-5.90); RED CELL DISTRIBUTION WIDTH 15.5 % (11.5-14.5)
[2018-08-13 23:33] LABS: ANION GAP 8 mmol/L (8-16); CARBON DIOXIDE 29 mmol/L (22-29); CHLORIDE 102 mmol/L (98-107); CREATININE 0.98 mg/dL (0.60-1.30); GLOMERULAR FILTR. RATE CALC > 60 mL/min (>60); GLUCOSE,RANDOM 81 mg/dL (70-110); SODIUM SERUM 139 mmol/L (136-145); UREA NITROGEN, BLOOD 14 mg/dL (7-18)
[2018-08-13 23:40] LABS: ALANINE AMINOTRANSFERASE 84 U/L (12-78); ALBUMIN 3.8 g/dL (3.4-5.0); ALKALINE PHOSPHATASE 98 U/L (46-116); ASPARTATE AMINOTRANSFERASE 41 U/L (15-37); BILIRUBIN,TOTAL 0.6 mg/dL (0.1-1.0); TOTAL PROTEIN, SERUM 8.5 g/dL (6.4-8.2)
[2018-08-14] MEDS ORDERED: DiphenhydrAMINE HCL 50 MG/ML VIAL IM ONE (01:30)
[2018-08-14] MEDS ORDERED: LORazepam 2 MG/ML VIAL IM ONE (01:30)
[2018-08-14] MEDS ORDERED: HALOPERIDOL LACTATE 5 MG/ML VIAL IM ONE (01:30)
[2018-08-14 01:55] LABS: AMPHET/METH SCREEN,URINE NEGATIVE (NEGATIVE); BARBITURATE SCREEN, URINE NEGATIVE (NEGATIVE); BENZODIAZEPINES SCREEN,URINE NEGATIVE (NEGATIVE); CANNABINOID SCREEN,URINE POSITIVE (NEGATIVE); COCAINE SCREEN,URINE NEGATIVE (NEGATIVE); METHADONE SCREEN, URINE NEGATIVE (NEGATIVE); OPIATE SCREEN,URINE NEGATIVE (NEGATIVE)
[2018-08-14 01:57] LABS: PHENCYCLIDINE SCREEN,URINE NEGATIVE (NEGATIVE)
[2018-08-14 05:33] VITALS: BP 138/89
== END 2018-08-14 05:35 | disposition home or self-care (01) ==
LOC: EMS 22:05
DX: F25.9 Schizoaffective disorder, unspecified (principal); F41.9 Anxiety disorder, unspecified; B19.10 Unspecified viral hepatitis B without hepatic coma; J45.909 Unspecified asthma, uncomplicated; F17.210 Nicotine dependence, cigarettes, uncomplicated; F12.90 Cannabis use, unspecified, uncomplicated; F11.90 Opioid use, unspecified, uncomplicated; Z88.0 Allergy status to penicillin; Z88.2 Allergy status to sulfonamides; Z79.899 Other long term (current) drug therapy
CPT/HCPCS: 36415; 80053; 80307; 85025; 96372 ×3; 99284; G0480; J1200; J1630; J2060

== ENCOUNTER 2018-12-26 15:30 | Inpatient (IN) | payer MEDICAID ==
[~2018-12-26] VITALS: Ht 180.3 cm; Wt 66.3 kg
[2018-12-26 15:38] VITALS: BP 127/87
[2018-12-26 16:15] VITALS: BP 139/99
[2018-12-26] MEDS ORDERED: LEVE500T53 PO (16:30)
[2018-12-26] MEDS ORDERED: ACETAMINOPHEN 325 MG TABLET PO PRN (17:45)
[2018-12-26] MEDS ORDERED: ALBUTEROL SULFATE HFA 90 MCG/PUFF 8 GM INHALER IH PRN (17:45)
[2018-12-26] MEDS ORDERED: DOCUSATE SODIUM 100 MG CAPSULE PO PRN (17:45)
[2018-12-26] MEDS ORDERED: ONDANSETRON HCL 4 MG TABLET PO PRN (17:45)
[2018-12-26] MEDS ORDERED: CloNIDine HCL 0.1 MG TABLET PO PRN (17:45)
[2018-12-26] MEDS ORDERED: PETROLATUM,WHITE 71 GM JELLY TP PRN (17:45)
[2018-12-26] MEDS ORDERED: MAGNESIUM HYDROXIDE SUSPENSION 30 ML UDCUP PO PRN (17:45)
[2018-12-26] MEDS ORDERED: NICOTINE 14 MG/24 HOUR PATCH TD PRN (17:45)
[2018-12-26] MEDS ORDERED: IBUPROFEN 400 MG TABLET PO PRN (17:45)
[2018-12-26] MEDS: HALOPERIDOL 5 MG TABLET PO PRN (18:53)
[2018-12-26] MEDS: LORazepam 2 MG TABLET PO PRN (18:53)
[2018-12-27 02:08] VITALS: BP 128/85
[2018-12-27 08:13] VITALS: BP 120/70
[2018-12-27 08:46] LABS: BASOPHILS % (AUTO) 0.8 % (0.0-2.0); EOSINOPHILS % (AUTO) 11.4 % (1.0-6.0); HEMATOCRIT 39.6 % (41-53); HEMOGLOBIN 13.7 g/dL (13.5-17.5); LYMPHOCYTES % (AUTO) 34.6 % (22.0-44.0); MEAN CORPUSCULAR HEMOGLOBIN 28.8 pg (26.0-34.0); MEAN CORPUSCULAR HGB CONC 34.5 G/dL (31.0-37.0); MEAN CORPUSCULAR VOLUME 83 fL (80-100); MONOCYTES # (AUTO) 0.4 K/uL (0.1-1.0); MONOCYTES % (AUTO) 13.1 % (2.0-9.0); NEUTROPHILS # (AUTO) 1.2 K/uL (1.8-7.7); NEUTROPHILS % (AUTO) 40.1 % (40.0-70.0); PLATELET COUNT (AUTO) 140 K/uL (150-450); RED BLOOD CELL COUNT(AUTO) 4.75 MIL/uL (4.50-5.90); RED CELL DISTRIBUTION WIDTH 14.2 % (11.5-14.5)
[2018-12-27 09:18] LABS: ALANINE AMINOTRANSFERASE 63 U/L (12-78); ALBUMIN 2.8 g/dL (3.4-5.0); ALKALINE PHOSPHATASE 67 U/L (46-116); ANION GAP 9 mmol/L (8-16); ASPARTATE AMINOTRANSFERASE 47 U/L (15-37); BILIRUBIN,TOTAL 0.3 mg/dL (0.1-1.0); CALCIUM, TOTAL 8.5 mg/dL (8.8-10.5); CARBON DIOXIDE 23 mmol/L (22-29); CHLORIDE 106 mmol/L (98-107); CHOLESTEROL 159 mg/dL (131-200); CREATININE 0.82 mg/dL (0.60-1.30); FREE T4 (FREE THYROXINE) 1.01 ng/dL (0.76-1.46); GLOMERULAR FILTR. RATE CALC > 60 mL/min (>60); GLUCOSE,RANDOM 87 mg/dL (70-110); HDL CHOLESTEROL 53 mg/dL (40-60); LDL CHOL (CALC.) 95 mg/dL (0-130); SODIUM SERUM 138 mmol/L (136-145); THYROID STIMULATING HORMONE 6.38 uIU/mL (0.36-3.74); TOTAL PROTEIN, SERUM 6.7 g/dL (6.4-8.2); TRIGLYCERIDES 54 mg/dL (15-150); UREA NITROGEN, BLOOD 14 mg/dL (7-18)
[2018-12-27] MEDS: TRIHEXYPHENIDYL HCL 5 MG TABLET PO SCH ×3 (09:40→16:01)
[2018-12-27] MEDS: NALTREXONE HCL 50 MG TABLET PO SCH (09:40)
[2018-12-27 09:45] LABS: HEMOGLOBIN A1C 5.5 % (4.5-6.2)
[2018-12-27] MEDS: LevETIRAcetam 500 MG TABLET PO SCH (16:01)
[2018-12-27] MEDS: LORazepam 2 MG TABLET PO PRN ×2 (16:01→20:02)
[2018-12-27] MEDS: HALOPERIDOL 5 MG TABLET PO PRN (16:01)
[2018-12-27 16:17] VITALS: BP 138/90
[2018-12-27] MEDS: HALOPERIDOL 10 MG TABLET PO SCH (20:02)
[2018-12-27] MEDS: ZOLPIDEM TARTRATE 10 MG TABLET PO PRN (20:02)
[2018-12-28 05:52] VITALS: BP 138/88
[2018-12-28 08:00] VITALS: BP 136/89
[2018-12-28] MEDS: EMTRICITABINE/TENOFOVIR 200-300 MG TABLET PO SCH (09:00)
[2018-12-28] MEDS: LevETIRAcetam 500 MG TABLET PO SCH ×2 (09:00→17:01)
[2018-12-28] MEDS: NALTREXONE HCL 50 MG TABLET PO SCH (09:00)
[2018-12-28] MEDS: TRIHEXYPHENIDYL HCL 5 MG TABLET PO SCH ×3 (09:00→17:01)
[2018-12-28 16:07] VITALS: BP 127/78
[2018-12-28] MEDS: HALOPERIDOL 5 MG TABLET PO PRN (17:01)
[2018-12-28] MEDS: LORazepam 2 MG TABLET PO PRN (17:01)
[2018-12-28] MEDS: HALOPERIDOL 10 MG TABLET PO SCH (20:16)
[2018-12-28] MEDS: ZOLPIDEM TARTRATE 10 MG TABLET PO PRN (20:16)
[2018-12-29 02:40] VITALS: BP 132/79
[2018-12-29 08:51] VITALS: BP 110/68
[2018-12-29] MEDS: EMTRICITABINE/TENOFOVIR 200-300 MG TABLET PO SCH (09:00)
[2018-12-29] MEDS: TRIHEXYPHENIDYL HCL 5 MG TABLET PO SCH ×3 (09:00→16:15)
[2018-12-29] MEDS: NALTREXONE HCL 50 MG TABLET PO SCH (09:00)
[2018-12-29] MEDS: LevETIRAcetam 500 MG TABLET PO SCH ×2 (09:00→16:15)
[2018-12-29] MEDS: LORazepam 2 MG TABLET PO PRN ×2 (16:15→22:27)
[2018-12-29 16:27] VITALS: BP 137/92
[2018-12-29] MEDS: ZOLPIDEM TARTRATE 10 MG TABLET PO PRN (20:37)
[2018-12-29] MEDS: HALOPERIDOL 10 MG TABLET PO SCH (20:37)
[2018-12-30 08:05] VITALS: BP 115/62
[2018-12-30] MEDS: LevETIRAcetam 500 MG TABLET PO SCH ×2 (09:00→16:04)
[2018-12-30] MEDS: TRIHEXYPHENIDYL HCL 5 MG TABLET PO SCH ×3 (09:00→16:04)
[2018-12-30] MEDS: EMTRICITABINE/TENOFOVIR 200-300 MG TABLET PO SCH (09:00)
[2018-12-30] MEDS: NALTREXONE HCL 50 MG TABLET PO SCH (09:00)
[2018-12-30 16:00] VITALS: BP 137/90
[2018-12-30] MEDS: HALOPERIDOL 10 MG TABLET PO SCH (20:15)
[2018-12-31 01:36] VITALS: BP 110/65
[2018-12-31] MEDS: TRIHEXYPHENIDYL HCL 5 MG TABLET PO SCH ×3 (08:23→16:11)
[2018-12-31] MEDS: NALTREXONE HCL 50 MG TABLET PO SCH (08:23)
[2018-12-31] MEDS: LevETIRAcetam 500 MG TABLET PO SCH ×2 (08:23→16:11)
[2018-12-31] MEDS: EMTRICITABINE/TENOFOVIR 200-300 MG TABLET PO SCH (08:26)
[2018-12-31 08:58] VITALS: BP 126/77
[2018-12-31] MEDS: GuaiFENesin/D-METHORPHAN [SUGAR-FREE] 200-20MG/10 ML SYRUP UDCUP PO PRN (13:23)
[2018-12-31 16:00] VITALS: BP 123/79
[2018-12-31] MEDS: HALOPERIDOL 5 MG TABLET PO PRN (16:11)
[2018-12-31] MEDS: LORazepam 2 MG TABLET PO PRN (16:11)
[2018-12-31] MEDS: HALOPERIDOL 10 MG TABLET PO SCH (20:48)
[2019-01-01 03:58] VITALS: BP 112/80
[2019-01-01] MEDS: NALTREXONE HCL 50 MG TABLET PO SCH (08:02)
[2019-01-01] MEDS: LevETIRAcetam 500 MG TABLET PO SCH ×2 (08:02→16:47)
[2019-01-01] MEDS: TRIHEXYPHENIDYL HCL 5 MG TABLET PO SCH ×3 (08:02→16:47)
[2019-01-01] MEDS: LORazepam 2 MG TABLET PO PRN ×2 (08:02→16:47)
[2019-01-01] MEDS: EMTRICITABINE/TENOFOVIR 200-300 MG TABLET PO SCH (08:02)
[2019-01-01 08:04] VITALS: BP 115/73
[2019-01-01 16:00] VITALS: BP 116/75
[2019-01-01] MEDS: HALOPERIDOL 10 MG TABLET PO SCH (20:21)
[2019-01-01] MEDS: ZOLPIDEM TARTRATE 10 MG TABLET PO PRN (20:21)
[2019-01-02 00:40] VITALS: BP 139/80
[2019-01-02 08:21] VITALS: BP 112/72
[2019-01-02] MEDS: EMTRICITABINE/TENOFOVIR 200-300 MG TABLET PO SCH (09:00)
[2019-01-02] MEDS: TRIHEXYPHENIDYL HCL 5 MG TABLET PO SCH ×3 (09:13→16:56)
[2019-01-02] MEDS: LevETIRAcetam 500 MG TABLET PO SCH ×2 (09:13→16:56)
[2019-01-02] MEDS: NALTREXONE HCL 50 MG TABLET PO SCH (09:13)
[2019-01-02] MEDS ORDERED: ONDANSETRON HCL 4 MG/2 ML VIAL IM ONE (12:30)
[2019-01-02] MEDS: LORazepam 2 MG TABLET PO PRN ×2 (14:12→18:22)
[2019-01-02] MEDS: HALOPERIDOL 5 MG TABLET PO PRN (14:12)
[2019-01-02 16:17] VITALS: BP 103/63
[2019-01-02] MEDS: ZOLPIDEM TARTRATE 10 MG TABLET PO PRN (20:08)
[2019-01-02] MEDS: HALOPERIDOL 10 MG TABLET PO SCH (20:08)
[2019-01-02] MEDS: OLANZapine 10 MG TABLET PO SCH (21:07)
[2019-01-03 05:10] VITALS: BP 124/87
[2019-01-03] MEDS: NALTREXONE HCL 50 MG TABLET PO SCH (09:00)
[2019-01-03] MEDS: EMTRICITABINE/TENOFOVIR 200-300 MG TABLET PO SCH (09:00)
[2019-01-03] MEDS: TRIHEXYPHENIDYL HCL 5 MG TABLET PO SCH ×3 (09:00→16:14)
[2019-01-03] MEDS: LevETIRAcetam 500 MG TABLET PO SCH ×2 (09:00→16:14)
[2019-01-03 16:00] VITALS: BP 134/84
[2019-01-03] MEDS: LORazepam 2 MG TABLET PO PRN (18:14)
[2019-01-03] MEDS: OLANZapine 10 MG TABLET PO SCH (20:18)
[2019-01-03] MEDS: HALOPERIDOL 10 MG TABLET PO SCH (20:18)
[2019-01-03] MEDS: ZOLPIDEM TARTRATE 10 MG TABLET PO PRN (21:26)
[2019-01-04 06:19] VITALS: BP 116/89
[2019-01-04 07:47] LABS: BASOPHILS % (AUTO) 0.6 % (0.0-2.0); EOSINOPHILS % (AUTO) 9.2 % (1.0-6.0); HEMATOCRIT 44.2 % (41-53); HEMOGLOBIN 15.6 g/dL (13.5-17.5); LYMPHOCYTES # (AUTO) 1.3 K/uL (1.0-4.8); LYMPHOCYTES % (AUTO) 36.2 % (22.0-44.0); MEAN CORPUSCULAR HEMOGLOBIN 28.7 pg (26.0-34.0); MEAN CORPUSCULAR HGB CONC 35.2 G/dL (31.0-37.0); MEAN CORPUSCULAR VOLUME 82 fL (80-100); MONOCYTES # (AUTO) 0.7 K/uL (0.1-1.0); MONOCYTES % (AUTO) 20.2 % (2.0-9.0); NEUTROPHILS # (AUTO) 1.2 K/uL (1.8-7.7); NEUTROPHILS % (AUTO) 33.8 % (40.0-70.0); PLATELET COUNT (AUTO) 169 K/uL (150-450); RED BLOOD CELL COUNT(AUTO) 5.42 MIL/uL (4.50-5.90); RED CELL DISTRIBUTION WIDTH 14.3 % (11.5-14.5)
[2019-01-04] MEDS: EMTRICITABINE/TENOFOVIR 200-300 MG TABLET PO SCH (09:00)
[2019-01-04 09:04] VITALS: BP 123/77
[2019-01-04] MEDS: TRIHEXYPHENIDYL HCL 5 MG TABLET PO SCH ×3 (09:13→16:00)
[2019-01-04] MEDS: LORazepam 2 MG TABLET PO PRN ×3 (09:13→23:01)
[2019-01-04] MEDS: HALOPERIDOL 5 MG TABLET PO PRN (09:13)
[2019-01-04] MEDS: FOLIC ACID 1 MG TABLET PO SCH (09:13)
[2019-01-04] MEDS: NALTREXONE HCL 50 MG TABLET PO SCH (09:13)
[2019-01-04] MEDS: LevETIRAcetam 500 MG TABLET PO SCH ×2 (09:13→16:00)
[2019-01-04 17:02] VITALS: BP 132/85
[2019-01-04] MEDS: HALOPERIDOL 10 MG TABLET PO SCH (20:19)
[2019-01-04] MEDS: ZOLPIDEM TARTRATE 10 MG TABLET PO PRN (20:19)
[2019-01-04] MEDS: OLANZapine 10 MG TABLET PO SCH (20:19)
[2019-01-05 01:48] VITALS: BP 114/88
[2019-01-05 08:31] VITALS: BP 114/64
[2019-01-05] MEDS: TRIHEXYPHENIDYL HCL 5 MG TABLET PO SCH ×3 (08:43→16:26)
[2019-01-05] MEDS: LORazepam 2 MG TABLET PO PRN ×2 (08:44→16:27)
[2019-01-05] MEDS: EMTRICITABINE/TENOFOVIR 200-300 MG TABLET PO SCH (08:44)
[2019-01-05] MEDS: LevETIRAcetam 500 MG TABLET PO SCH ×2 (08:44→16:26)
[2019-01-05] MEDS: NALTREXONE HCL 50 MG TABLET PO SCH (08:44)
[2019-01-05] MEDS: FOLIC ACID 1 MG TABLET PO SCH (08:44)
[2019-01-05 16:51] VITALS: BP 128/92
[2019-01-05] MEDS: OLANZapine 10 MG TABLET PO SCH (20:30)
[2019-01-05] MEDS: HALOPERIDOL 10 MG TABLET PO SCH (20:30)
[2019-01-06 06:10] VITALS: BP 122/87
[2019-01-06] MEDS: NALTREXONE HCL 50 MG TABLET PO SCH (08:35)
[2019-01-06] MEDS: FOLIC ACID 1 MG TABLET PO SCH (08:35)
[2019-01-06] MEDS: TRIHEXYPHENIDYL HCL 5 MG TABLET PO SCH ×3 (08:35→16:33)
[2019-01-06] MEDS: LORazepam 2 MG TABLET PO PRN ×2 (08:35→16:34)
[2019-01-06] MEDS: EMTRICITABINE/TENOFOVIR 200-300 MG TABLET PO SCH (08:35)
[2019-01-06] MEDS: LevETIRAcetam 500 MG TABLET PO SCH ×2 (08:35→16:33)
[2019-01-06 09:18] VITALS: BP 130/82
[2019-01-06] MEDS ORDERED: LORazepam 2 MG/ML VIAL IM ONE (09:45)
[2019-01-06] MEDS ORDERED: HALOPERIDOL LACTATE 5 MG/ML VIAL IM ONE (09:45)
[2019-01-06] MEDS ORDERED: DiphenhydrAMINE HCL 50 MG/ML VIAL IM ONE (09:45)
[2019-01-06 17:05] VITALS: BP 122/82
[2019-01-06] MEDS: OLANZapine 10 MG TABLET PO SCH (20:27)
[2019-01-06] MEDS: HALOPERIDOL 10 MG TABLET PO SCH (20:27)
[2019-01-07 00:08] VITALS: BP 140/90
[2019-01-07 08:17] VITALS: BP 114/79
[2019-01-07] MEDS: TRIHEXYPHENIDYL HCL 5 MG TABLET PO SCH ×3 (08:38→16:09)
[2019-01-07] MEDS: LevETIRAcetam 500 MG TABLET PO SCH ×2 (08:38→16:09)
[2019-01-07] MEDS: EMTRICITABINE/TENOFOVIR 200-300 MG TABLET PO SCH (08:38)
[2019-01-07] MEDS: LORazepam 2 MG TABLET PO PRN ×2 (08:38→18:16)
[2019-01-07] MEDS: FOLIC ACID 1 MG TABLET PO SCH (08:38)
[2019-01-07] MEDS: NALTREXONE HCL 50 MG TABLET PO SCH (08:38)
[2019-01-07 16:00] VITALS: BP 137/80
[2019-01-07] MEDS: OLANZapine 10 MG TABLET PO SCH (16:09)
[2019-01-07] MEDS: ZOLPIDEM TARTRATE 10 MG TABLET PO PRN (20:27)
[2019-01-07] MEDS: HALOPERIDOL 10 MG TABLET PO SCH (20:27)
[2019-01-08 02:55] VITALS: BP 115/95
[2019-01-08] MEDS: MAG HYDROX/AL HYDROX/SIMETH ES 30 ML SUSPENSION UDCUP PO PRN (02:57)
[2019-01-08] MEDS: LEVOTHYROXINE SODIUM 25 MCG TABLET PO SCH (06:43)
[2019-01-08 08:15] VITALS: BP 112/88
[2019-01-08] MEDS: EMTRICITABINE/TENOFOVIR 200-300 MG TABLET PO SCH ×2 (08:33→09:00)
[2019-01-08] MEDS: FOLIC ACID 1 MG TABLET PO SCH (08:33)
[2019-01-08] MEDS: LevETIRAcetam 500 MG TABLET PO SCH ×2 (08:34→16:26)
[2019-01-08] MEDS: OLANZapine 10 MG TABLET PO SCH ×2 (08:34→16:26)
[2019-01-08] MEDS: NALTREXONE HCL 50 MG TABLET PO SCH (08:34)
[2019-01-08] MEDS: TRIHEXYPHENIDYL HCL 5 MG TABLET PO SCH ×3 (08:34→16:26)
[2019-01-08] MEDS: LORazepam 2 MG TABLET PO PRN ×2 (13:45→17:48)
[2019-01-08 16:00] VITALS: BP 119/85
[2019-01-08] MEDS: HALOPERIDOL 10 MG TABLET PO SCH (20:23)
[2019-01-08] MEDS: ZOLPIDEM TARTRATE 10 MG TABLET PO PRN (20:23)
[2019-01-09 06:34] VITALS: BP 121/85
[2019-01-09] MEDS: LEVOTHYROXINE SODIUM 25 MCG TABLET PO SCH (07:07)
[2019-01-09 08:11] VITALS: BP 124/79
[2019-01-09] MEDS: EMTRICITABINE/TENOFOVIR 200-300 MG TABLET PO SCH (09:00)
[2019-01-09] MEDS: LevETIRAcetam 500 MG TABLET PO SCH ×2 (09:04→16:22)
[2019-01-09] MEDS: NALTREXONE HCL 50 MG TABLET PO SCH (09:04)
[2019-01-09] MEDS: LORazepam 2 MG TABLET PO PRN ×3 (09:04→19:24)
[2019-01-09] MEDS: FOLIC ACID 1 MG TABLET PO SCH (09:04)
[2019-01-09] MEDS: OLANZapine 10 MG TABLET PO SCH ×2 (09:04→16:22)
[2019-01-09] MEDS: TRIHEXYPHENIDYL HCL 5 MG TABLET PO SCH ×3 (09:04→16:22)
[2019-01-09 16:00] VITALS: BP 135/79
[2019-01-09] MEDS: HALOPERIDOL 10 MG TABLET PO SCH (20:36)
[2019-01-10 04:52] VITALS: BP 126/72
[2019-01-10] MEDS: LEVOTHYROXINE SODIUM 25 MCG TABLET PO SCH (06:23)
[2019-01-10] MEDS: OLANZapine 10 MG TABLET PO SCH ×2 (08:30→16:58)
[2019-01-10] MEDS: LORazepam 2 MG TABLET PO PRN ×3 (08:30→20:59)
[2019-01-10] MEDS: FOLIC ACID 1 MG TABLET PO SCH (08:30)
[2019-01-10] MEDS: LevETIRAcetam 500 MG TABLET PO SCH ×2 (08:30→16:58)
[2019-01-10] MEDS: TRIHEXYPHENIDYL HCL 5 MG TABLET PO SCH ×3 (08:30→16:58)
[2019-01-10] MEDS: EMTRICITABINE/TENOFOVIR 200-300 MG TABLET PO SCH (08:30)
[2019-01-10] MEDS: NALTREXONE HCL 50 MG TABLET PO SCH (08:31)
[2019-01-10 09:23] VITALS: BP 127/78
[2019-01-10 16:22] VITALS: BP 128/67
[2019-01-10] MEDS: MAG HYDROX/AL HYDROX/SIMETH ES 30 ML SUSPENSION UDCUP PO PRN (19:19)
[2019-01-10] MEDS: ZOLPIDEM TARTRATE 10 MG TABLET PO PRN (20:59)
[2019-01-10] MEDS: HALOPERIDOL 10 MG TABLET PO SCH (20:59)
[2019-01-11 05:20] VITALS: BP 132/75
[2019-01-11] MEDS: LEVOTHYROXINE SODIUM 25 MCG TABLET PO SCH (06:26)
[2019-01-11 08:02] VITALS: BP 113/79
[2019-01-11] MEDS: EMTRICITABINE/TENOFOVIR 200-300 MG TABLET PO SCH (09:00)
[2019-01-11] MEDS: OLANZapine 10 MG TABLET PO SCH ×2 (09:14→16:38)
[2019-01-11] MEDS: TRIHEXYPHENIDYL HCL 5 MG TABLET PO SCH ×3 (09:14→16:37)
[2019-01-11] MEDS: NALTREXONE HCL 50 MG TABLET PO SCH (09:14)
[2019-01-11] MEDS: FOLIC ACID 1 MG TABLET PO SCH (09:14)
[2019-01-11] MEDS: LevETIRAcetam 500 MG TABLET PO SCH ×2 (09:14→16:38)
[2019-01-11] MEDS: LORazepam 2 MG TABLET PO PRN ×2 (09:14→18:10)
[2019-01-11 16:00] VITALS: BP 129/88
[2019-01-11] MEDS: HALOPERIDOL 10 MG TABLET PO SCH (20:18)
[2019-01-11] MEDS: ZOLPIDEM TARTRATE 10 MG TABLET PO PRN (20:28)
[2019-01-12 05:22] VITALS: BP 122/82
[2019-01-12] MEDS: LEVOTHYROXINE SODIUM 25 MCG TABLET PO SCH (06:46)
[2019-01-12 08:19] VITALS: BP 126/80
[2019-01-12] MEDS: TRIHEXYPHENIDYL HCL 5 MG TABLET PO SCH ×3 (08:25→16:40)
[2019-01-12] MEDS: EMTRICITABINE/TENOFOVIR 200-300 MG TABLET PO SCH (08:25)
[2019-01-12] MEDS: NALTREXONE HCL 50 MG TABLET PO SCH (08:25)
[2019-01-12] MEDS: LevETIRAcetam 500 MG TABLET PO SCH ×2 (08:26→16:40)
[2019-01-12] MEDS: FOLIC ACID 1 MG TABLET PO SCH (08:26)
[2019-01-12] MEDS: LORazepam 2 MG TABLET PO PRN ×2 (08:26→16:40)
[2019-01-12] MEDS: OLANZapine 10 MG TABLET PO SCH ×2 (08:26→16:40)
[2019-01-12 16:00] VITALS: BP 114/89
[2019-01-12] MEDS: HALOPERIDOL 10 MG TABLET PO SCH (20:43)
[2019-01-13 01:13] VITALS: BP 114/77
[2019-01-13] MEDS: LEVOTHYROXINE SODIUM 25 MCG TABLET PO SCH (06:15)
[2019-01-13 08:08] VITALS: BP 143/92
[2019-01-13] MEDS: FOLIC ACID 1 MG TABLET PO SCH (08:25)
[2019-01-13] MEDS: OLANZapine 10 MG TABLET PO SCH ×2 (08:25→16:31)
[2019-01-13] MEDS: LORazepam 2 MG TABLET PO PRN ×2 (08:25→16:31)
[2019-01-13] MEDS: TRIHEXYPHENIDYL HCL 5 MG TABLET PO SCH ×3 (08:25→16:31)
[2019-01-13] MEDS: NALTREXONE HCL 50 MG TABLET PO SCH (08:25)
[2019-01-13] MEDS: EMTRICITABINE/TENOFOVIR 200-300 MG TABLET PO SCH (08:25)
[2019-01-13] MEDS: LevETIRAcetam 500 MG TABLET PO SCH ×2 (08:25→16:31)
[2019-01-13 16:00] VITALS: BP 121/87
[2019-01-13] MEDS: HALOPERIDOL 10 MG TABLET PO SCH (20:30)
[2019-01-14 04:03] VITALS: BP 120/92
[2019-01-14] MEDS: LORazepam 2 MG TABLET PO PRN ×4 (04:06→17:31)
[2019-01-14] MEDS: LEVOTHYROXINE SODIUM 25 MCG TABLET PO SCH (06:52)
[2019-01-14 08:10] VITALS: BP 118/75
[2019-01-14] MEDS: EMTRICITABINE/TENOFOVIR 200-300 MG TABLET PO SCH (09:11)
[2019-01-14] MEDS: LevETIRAcetam 500 MG TABLET PO SCH ×2 (09:11→16:29)
[2019-01-14] MEDS: FOLIC ACID 1 MG TABLET PO SCH (09:11)
[2019-01-14] MEDS: OLANZapine 10 MG TABLET PO SCH ×2 (09:11→16:29)
[2019-01-14] MEDS: TRIHEXYPHENIDYL HCL 5 MG TABLET PO SCH ×3 (09:11→16:29)
[2019-01-14] MEDS: NALTREXONE HCL 50 MG TABLET PO SCH (09:13)
[2019-01-14 16:22] VITALS: BP 121/86
[2019-01-14] MEDS: HALOPERIDOL 10 MG TABLET PO SCH (20:37)
[2019-01-15 05:20] VITALS: BP 124/98
[2019-01-15] MEDS: LEVOTHYROXINE SODIUM 25 MCG TABLET PO SCH (06:33)
[2019-01-15] MEDS: NALTREXONE HCL 50 MG TABLET PO SCH (08:18)
[2019-01-15] MEDS: OLANZapine 10 MG TABLET PO SCH ×2 (08:18→16:28)
[2019-01-15] MEDS: EMTRICITABINE/TENOFOVIR 200-300 MG TABLET PO SCH (08:18)
[2019-01-15] MEDS: FOLIC ACID 1 MG TABLET PO SCH (08:18)
[2019-01-15] MEDS: LevETIRAcetam 500 MG TABLET PO SCH ×2 (08:18→16:28)
[2019-01-15] MEDS: TRIHEXYPHENIDYL HCL 5 MG TABLET PO SCH ×3 (08:18→16:28)
[2019-01-15] MEDS: LORazepam 2 MG TABLET PO PRN ×3 (08:18→20:30)
[2019-01-15 08:21] VITALS: BP 137/84
[2019-01-15 16:12] VITALS: BP 135/90
[2019-01-15] MEDS: HALOPERIDOL 10 MG TABLET PO SCH (20:30)
[2019-01-15] MEDS: ZOLPIDEM TARTRATE 10 MG TABLET PO PRN (20:30)
[2019-01-16 05:00] VITALS: BP 125/85
[2019-01-16] MEDS: LEVOTHYROXINE SODIUM 25 MCG TABLET PO SCH (06:35)
[2019-01-16] MEDS: LevETIRAcetam 500 MG TABLET PO SCH ×2 (08:53→16:42)
[2019-01-16] MEDS: OLANZapine 10 MG TABLET PO SCH ×2 (08:53→16:41)
[2019-01-16] MEDS: FOLIC ACID 1 MG TABLET PO SCH (08:54)
[2019-01-16] MEDS: TRIHEXYPHENIDYL HCL 5 MG TABLET PO SCH ×3 (08:54→16:42)
[2019-01-16] MEDS: NALTREXONE HCL 50 MG TABLET PO SCH (08:54)
[2019-01-16] MEDS: LORazepam 2 MG TABLET PO PRN ×3 (08:54→20:43)
[2019-01-16] MEDS: EMTRICITABINE/TENOFOVIR 200-300 MG TABLET PO SCH (08:54)
[2019-01-16 16:13] VITALS: BP 132/88
[2019-01-16] MEDS: HALOPERIDOL 5 MG TABLET PO PRN (19:13)
[2019-01-16] MEDS: ZOLPIDEM TARTRATE 10 MG TABLET PO PRN (20:43)
[2019-01-16] MEDS: HALOPERIDOL 10 MG TABLET PO SCH (20:43)
[2019-01-17 05:53] VITALS: BP 128/86
[2019-01-17] MEDS: LEVOTHYROXINE SODIUM 25 MCG TABLET PO SCH (06:20)
[2019-01-17] MEDS: FOLIC ACID 1 MG TABLET PO SCH (08:28)
[2019-01-17] MEDS: TRIHEXYPHENIDYL HCL 5 MG TABLET PO SCH ×3 (08:28→16:06)
[2019-01-17] MEDS: NALTREXONE HCL 50 MG TABLET PO SCH (08:28)
[2019-01-17] MEDS: LevETIRAcetam 500 MG TABLET PO SCH ×2 (08:28→16:06)
[2019-01-17] MEDS: OLANZapine 10 MG TABLET PO SCH ×2 (08:28→16:06)
[2019-01-17] MEDS: EMTRICITABINE/TENOFOVIR 200-300 MG TABLET PO SCH (08:29)
[2019-01-17 08:41] VITALS: BP 121/76
[2019-01-17] MEDS: LORazepam 2 MG TABLET PO PRN ×2 (10:31→18:01)
[2019-01-17 16:00] VITALS: BP 122/86
[2019-01-17] MEDS: HALOPERIDOL 10 MG TABLET PO SCH (20:29)
[2019-01-17] MEDS: ZOLPIDEM TARTRATE 10 MG TABLET PO PRN (20:30)
[2019-01-18 05:24] VITALS: BP 118/76
[2019-01-18] MEDS: LEVOTHYROXINE SODIUM 25 MCG TABLET PO SCH (06:31)
[2019-01-18] MEDS: LevETIRAcetam 500 MG TABLET PO SCH ×2 (08:42→16:12)
[2019-01-18] MEDS: EMTRICITABINE/TENOFOVIR 200-300 MG TABLET PO SCH (08:42)
[2019-01-18] MEDS: FOLIC ACID 1 MG TABLET PO SCH (08:42)
[2019-01-18] MEDS: OLANZapine 10 MG TABLET PO SCH ×2 (08:42→16:12)
[2019-01-18] MEDS: NALTREXONE HCL 50 MG TABLET PO SCH (08:42)
[2019-01-18] MEDS: TRIHEXYPHENIDYL HCL 5 MG TABLET PO SCH ×3 (08:42→16:12)
[2019-01-18 08:52] VITALS: BP 126/91
[2019-01-18 16:08] VITALS: BP 138/96
[2019-01-18] MEDS: LORazepam 2 MG TABLET PO PRN (16:12)
[2019-01-18] MEDS: HALOPERIDOL 10 MG TABLET PO SCH (20:14)
[2019-01-18] MEDS: ZOLPIDEM TARTRATE 10 MG TABLET PO PRN (22:10)
[2019-01-19 02:26] VITALS: BP 119/75
[2019-01-19 02:35] VITALS: BP 124/80
[2019-01-19] MEDS: LEVOTHYROXINE SODIUM 25 MCG TABLET PO SCH (06:12)
[2019-01-19 08:18] VITALS: BP 113/79
[2019-01-19] MEDS: FOLIC ACID 1 MG TABLET PO SCH (08:23)
[2019-01-19] MEDS: OLANZapine 10 MG TABLET PO SCH ×2 (08:23→16:43)
[2019-01-19] MEDS: NALTREXONE HCL 50 MG TABLET PO SCH (08:23)
[2019-01-19] MEDS: TRIHEXYPHENIDYL HCL 5 MG TABLET PO SCH ×3 (08:23→16:44)
[2019-01-19] MEDS: LevETIRAcetam 500 MG TABLET PO SCH ×2 (08:23→16:44)
[2019-01-19] MEDS: EMTRICITABINE/TENOFOVIR 200-300 MG TABLET PO SCH (08:24)
[2019-01-19] MEDS: LOPERAMIDE HCL 2 MG CAPSULE PO PRN (13:54)
[2019-01-19 16:29] VITALS: BP 140/88
[2019-01-19] MEDS: LORazepam 2 MG TABLET PO PRN ×2 (16:43→20:43)
[2019-01-19] MEDS: HALOPERIDOL 5 MG TABLET PO PRN (16:44)
[2019-01-19] MEDS: ZOLPIDEM TARTRATE 10 MG TABLET PO PRN (20:43)
[2019-01-19] MEDS: HALOPERIDOL 10 MG TABLET PO SCH (20:43)
[2019-01-20 01:08] VITALS: BP 116/82
[2019-01-20] MEDS: LEVOTHYROXINE SODIUM 25 MCG TABLET PO SCH (06:12)
[2019-01-20 08:22] VITALS: BP 137/89
[2019-01-20] MEDS: EMTRICITABINE/TENOFOVIR 200-300 MG TABLET PO SCH (08:26)
[2019-01-20] MEDS: NALTREXONE HCL 50 MG TABLET PO SCH (08:26)
[2019-01-20] MEDS: TRIHEXYPHENIDYL HCL 5 MG TABLET PO SCH ×3 (08:27→16:30)
[2019-01-20] MEDS: LORazepam 2 MG TABLET PO PRN ×3 (08:27→21:05)
[2019-01-20] MEDS: OLANZapine 10 MG TABLET PO SCH ×2 (08:27→16:30)
[2019-01-20] MEDS: LevETIRAcetam 500 MG TABLET PO SCH ×2 (08:27→16:29)
[2019-01-20] MEDS: FOLIC ACID 1 MG TABLET PO SCH (08:27)
[2019-01-20 16:00] VITALS: BP 138/88
[2019-01-20] MEDS: HALOPERIDOL 10 MG TABLET PO SCH (21:05)
[2019-01-20] MEDS: ZOLPIDEM TARTRATE 10 MG TABLET PO PRN (21:05)
[2019-01-21] MEDS: HALOPERIDOL 5 MG TABLET PO PRN ×2 (02:47→16:28)
[2019-01-21] MEDS: LORazepam 2 MG TABLET PO PRN ×3 (02:48→16:28)
[2019-01-21 03:49] VITALS: BP 128/82
[2019-01-21] MEDS: LEVOTHYROXINE SODIUM 25 MCG TABLET PO SCH (06:25)
[2019-01-21 08:10] VITALS: BP 106/65
[2019-01-21] MEDS: EMTRICITABINE/TENOFOVIR 200-300 MG TABLET PO SCH (08:40)
[2019-01-21] MEDS: OLANZapine 10 MG TABLET PO SCH ×2 (08:40→16:28)
[2019-01-21] MEDS: FOLIC ACID 1 MG TABLET PO SCH (08:40)
[2019-01-21] MEDS: TRIHEXYPHENIDYL HCL 5 MG TABLET PO SCH ×3 (08:40→16:28)
[2019-01-21] MEDS: LevETIRAcetam 500 MG TABLET PO SCH ×2 (08:40→16:27)
[2019-01-21] MEDS: NALTREXONE HCL 50 MG TABLET PO SCH (08:40)
[2019-01-21 16:29] VITALS: BP 129/89
[2019-01-21] MEDS: ZOLPIDEM TARTRATE 10 MG TABLET PO PRN (20:15)
[2019-01-21] MEDS: HALOPERIDOL 10 MG TABLET PO SCH (20:15)
[2019-01-22 06:30] VITALS: BP 115/78
[2019-01-22] MEDS: LEVOTHYROXINE SODIUM 25 MCG TABLET PO SCH (06:50)
[2019-01-22 08:19] VITALS: BP 106/64
[2019-01-22] MEDS: TRIHEXYPHENIDYL HCL 5 MG TABLET PO SCH ×3 (08:20→16:19)
[2019-01-22] MEDS: LORazepam 2 MG TABLET PO PRN ×3 (08:21→18:38)
[2019-01-22] MEDS: FOLIC ACID 1 MG TABLET PO SCH (08:21)
[2019-01-22] MEDS: NALTREXONE HCL 50 MG TABLET PO SCH (08:21)
[2019-01-22] MEDS: LevETIRAcetam 500 MG TABLET PO SCH ×2 (08:21→16:19)
[2019-01-22] MEDS: EMTRICITABINE/TENOFOVIR 200-300 MG TABLET PO SCH (08:21)
[2019-01-22] MEDS: OLANZapine 10 MG TABLET PO SCH ×2 (08:21→16:19)
[2019-01-22 16:11] VITALS: BP 135/86
[2019-01-22] MEDS: ZOLPIDEM TARTRATE 10 MG TABLET PO PRN (20:29)
[2019-01-22] MEDS: HALOPERIDOL 10 MG TABLET PO SCH (20:29)
[2019-01-23 00:47] VITALS: BP 131/89
[2019-01-23] MEDS: LEVOTHYROXINE SODIUM 25 MCG TABLET PO SCH (06:33)
[2019-01-23 08:14] VITALS: BP 119/73
[2019-01-23] MEDS: FOLIC ACID 1 MG TABLET PO SCH (08:19)
[2019-01-23] MEDS: LevETIRAcetam 500 MG TABLET PO SCH ×2 (08:19→16:25)
[2019-01-23] MEDS: TRIHEXYPHENIDYL HCL 5 MG TABLET PO SCH ×3 (08:19→16:25)
[2019-01-23] MEDS: NALTREXONE HCL 50 MG TABLET PO SCH (08:19)
[2019-01-23] MEDS: OLANZapine 10 MG TABLET PO SCH ×2 (08:19→16:25)
[2019-01-23] MEDS: EMTRICITABINE/TENOFOVIR 200-300 MG TABLET PO SCH (08:20)
[2019-01-23 16:25] VITALS: BP 133/95
[2019-01-23] MEDS: LORazepam 2 MG TABLET PO PRN ×2 (16:25→20:38)
[2019-01-23] MEDS: ZOLPIDEM TARTRATE 10 MG TABLET PO PRN (20:38)
[2019-01-23] MEDS: HALOPERIDOL 10 MG TABLET PO SCH (20:38)
[2019-01-24 06:15] VITALS: BP 107/73
[2019-01-24] MEDS: LEVOTHYROXINE SODIUM 25 MCG TABLET PO SCH (06:23)
[2019-01-24 08:00] VITALS: BP 132/90
[2019-01-24] MEDS: NALTREXONE HCL 50 MG TABLET PO SCH (09:01)
[2019-01-24] MEDS: LevETIRAcetam 500 MG TABLET PO SCH ×2 (09:01→16:33)
[2019-01-24] MEDS: EMTRICITABINE/TENOFOVIR 200-300 MG TABLET PO SCH (09:01)
[2019-01-24] MEDS: OLANZapine 10 MG TABLET PO SCH ×2 (09:01→16:33)
[2019-01-24] MEDS: TRIHEXYPHENIDYL HCL 5 MG TABLET PO SCH ×3 (09:01→16:33)
[2019-01-24] MEDS: FOLIC ACID 1 MG TABLET PO SCH (09:02)
[2019-01-24 16:22] VITALS: BP 118/88
[2019-01-24] MEDS: LORazepam 2 MG TABLET PO PRN ×2 (16:33→20:34)
[2019-01-24] MEDS: HALOPERIDOL 10 MG TABLET PO SCH (20:32)
[2019-01-24] MEDS: ZOLPIDEM TARTRATE 10 MG TABLET PO PRN (20:32)
[2019-01-25 00:22] VITALS: BP 121/83
[2019-01-25] MEDS: LEVOTHYROXINE SODIUM 25 MCG TABLET PO SCH (06:29)
[2019-01-25 08:18] VITALS: BP 121/77
[2019-01-25] MEDS: EMTRICITABINE/TENOFOVIR 200-300 MG TABLET PO SCH (08:24)
[2019-01-25] MEDS: FOLIC ACID 1 MG TABLET PO SCH (08:29)
[2019-01-25] MEDS: NALTREXONE HCL 50 MG TABLET PO SCH (08:29)
[2019-01-25] MEDS: LevETIRAcetam 500 MG TABLET PO SCH ×2 (08:29→16:08)
[2019-01-25] MEDS: TRIHEXYPHENIDYL HCL 5 MG TABLET PO SCH ×3 (08:29→16:08)
[2019-01-25] MEDS: OLANZapine 10 MG TABLET PO SCH ×2 (08:29→16:08)
[2019-01-25] MEDS: LORazepam 2 MG TABLET PO PRN ×2 (08:30→18:39)
[2019-01-25 16:00] VITALS: BP 129/88
[2019-01-25] MEDS: HALOPERIDOL 10 MG TABLET PO SCH (20:13)
[2019-01-25] MEDS: ZOLPIDEM TARTRATE 10 MG TABLET PO PRN (21:06)
[2019-01-26 00:10] VITALS: BP 130/81
[2019-01-26] MEDS: LEVOTHYROXINE SODIUM 25 MCG TABLET PO SCH (06:22)
[2019-01-26] MEDS: OLANZapine 10 MG TABLET PO SCH ×2 (08:49→16:45)
[2019-01-26] MEDS: LORazepam 2 MG TABLET PO PRN ×2 (08:49→16:46)
[2019-01-26] MEDS: NALTREXONE HCL 50 MG TABLET PO SCH (08:49)
[2019-01-26] MEDS: EMTRICITABINE/TENOFOVIR 200-300 MG TABLET PO SCH (08:49)
[2019-01-26] MEDS: LevETIRAcetam 500 MG TABLET PO SCH ×2 (08:49→16:45)
[2019-01-26] MEDS: TRIHEXYPHENIDYL HCL 5 MG TABLET PO SCH ×3 (08:49→16:46)
[2019-01-26] MEDS: FOLIC ACID 1 MG TABLET PO SCH (08:49)
[2019-01-26 08:53] VITALS: BP 130/64
[2019-01-26] MEDS: GuaiFENesin/D-METHORPHAN [SUGAR-FREE] 200-20MG/10 ML SYRUP UDCUP PO PRN (10:35)
[2019-01-26 16:14] VITALS: BP 124/85
[2019-01-26] MEDS: HALOPERIDOL 5 MG TABLET PO PRN (16:46)
[2019-01-26] MEDS: ZOLPIDEM TARTRATE 10 MG TABLET PO PRN (20:10)
[2019-01-26] MEDS: HALOPERIDOL 10 MG TABLET PO SCH (20:10)
[2019-01-27 00:45] VITALS: BP 118/82
[2019-01-27] MEDS: LEVOTHYROXINE SODIUM 25 MCG TABLET PO SCH (06:22)
[2019-01-27] MEDS: NALTREXONE HCL 50 MG TABLET PO SCH (08:22)
[2019-01-27] MEDS: OLANZapine 10 MG TABLET PO SCH ×2 (08:22→16:32)
[2019-01-27] MEDS: EMTRICITABINE/TENOFOVIR 200-300 MG TABLET PO SCH (08:22)
[2019-01-27] MEDS: FOLIC ACID 1 MG TABLET PO SCH (08:22)
[2019-01-27] MEDS: TRIHEXYPHENIDYL HCL 5 MG TABLET PO SCH ×3 (08:22→16:32)
[2019-01-27] MEDS: LevETIRAcetam 500 MG TABLET PO SCH ×2 (08:22→16:32)
[2019-01-27] MEDS: LORazepam 2 MG TABLET PO PRN ×3 (08:22→16:56)
[2019-01-27 08:30] VITALS: BP 121/77
[2019-01-27 16:13] VITALS: BP 130/91
[2019-01-27] MEDS: HALOPERIDOL 5 MG TABLET PO PRN (16:32)
[2019-01-27] MEDS: HALOPERIDOL 10 MG TABLET PO SCH (20:57)
[2019-01-27] MEDS: ZOLPIDEM TARTRATE 10 MG TABLET PO PRN (20:57)
[2019-01-28 02:52] VITALS: BP 122/86
[2019-01-28] MEDS: LEVOTHYROXINE SODIUM 25 MCG TABLET PO SCH (06:23)
[2019-01-28] MEDS: FOLIC ACID 1 MG TABLET PO SCH (08:36)
[2019-01-28] MEDS: TRIHEXYPHENIDYL HCL 5 MG TABLET PO SCH ×3 (08:36→16:09)
[2019-01-28] MEDS: LevETIRAcetam 500 MG TABLET PO SCH ×2 (08:36→16:09)
[2019-01-28] MEDS: EMTRICITABINE/TENOFOVIR 200-300 MG TABLET PO SCH (08:36)
[2019-01-28] MEDS: NALTREXONE HCL 50 MG TABLET PO SCH (08:36)
[2019-01-28] MEDS: LORazepam 2 MG TABLET PO PRN ×2 (08:36→18:17)
[2019-01-28] MEDS: OLANZapine 10 MG TABLET PO SCH ×2 (08:36→16:09)
[2019-01-28 08:42] VITALS: BP 129/86
[2019-01-28 16:00] VITALS: BP 140/90
[2019-01-28] MEDS: HALOPERIDOL 10 MG TABLET PO SCH (20:36)
[2019-01-28] MEDS: ZOLPIDEM TARTRATE 10 MG TABLET PO PRN (20:36)
[2019-01-29 00:19] VITALS: BP 119/74
[2019-01-29] MEDS: LEVOTHYROXINE SODIUM 25 MCG TABLET PO SCH (06:36)
[2019-01-29 08:24] VITALS: BP 128/87
[2019-01-29] MEDS: LOPERAMIDE HCL 2 MG CAPSULE PO PRN (09:55)
[2019-01-29] MEDS: LevETIRAcetam 500 MG TABLET PO SCH ×2 (09:55→16:21)
[2019-01-29] MEDS: NALTREXONE HCL 50 MG TABLET PO SCH (09:55)
[2019-01-29] MEDS: FOLIC ACID 1 MG TABLET PO SCH (09:55)
[2019-01-29] MEDS: OLANZapine 10 MG TABLET PO SCH ×2 (09:55→16:21)
[2019-01-29] MEDS: LORazepam 2 MG TABLET PO PRN ×2 (09:55→16:21)
[2019-01-29] MEDS: EMTRICITABINE/TENOFOVIR 200-300 MG TABLET PO SCH (09:55)
[2019-01-29] MEDS: TRIHEXYPHENIDYL HCL 5 MG TABLET PO SCH ×3 (09:55→16:21)
[2019-01-29 16:02] VITALS: BP 130/91
[2019-01-29] MEDS: HALOPERIDOL 10 MG TABLET PO SCH (20:04)
[2019-01-30] MEDS: LEVOTHYROXINE SODIUM 25 MCG TABLET PO SCH (06:17)
[2019-01-30 06:27] VITALS: BP 122/86
[2019-01-30 08:36] VITALS: BP 119/78
[2019-01-30] MEDS: EMTRICITABINE/TENOFOVIR 200-300 MG TABLET PO SCH (09:26)
[2019-01-30] MEDS: LevETIRAcetam 500 MG TABLET PO SCH (09:26)
[2019-01-30] MEDS: TRIHEXYPHENIDYL HCL 5 MG TABLET PO SCH ×2 (09:26→12:36)
[2019-01-30] MEDS: OLANZapine 10 MG TABLET PO SCH (09:26)
[2019-01-30] MEDS: FOLIC ACID 1 MG TABLET PO SCH (09:27)
[2019-01-30] MEDS: NALTREXONE HCL 50 MG TABLET PO SCH (10:55)
[2019-01-30] MEDS ORDERED: OLAN10TA3 PO (11:04)
[2019-01-30] MEDS ORDERED: LEVO25TA9 PO (11:05)
== END 2019-01-30 13:15 | disposition home or self-care (01) | DRG 750 ==
LOC: B3A 15:43
PROVIDERS: ADMIT Psychiatry & Neurology Child & Adolescent Psychiatry; ATTEND Psychiatry & Neurology Child & Adolescent Psychiatry
DX: F25.0 Schizoaffective disorder, bipolar type (principal); B20 Human immunodeficiency virus [HIV] disease; D72.819 Decreased white blood cell count, unspecified; F41.9 Anxiety disorder, unspecified; E03.9 Hypothyroidism, unspecified; F19.10 Other psychoactive substance abuse, uncomplicated; F17.200 Nicotine dependence, unspecified, uncomplicated; G40.909 Epilepsy, unspecified, not intractable, without status epilepticus; J45.909 Unspecified asthma, uncomplicated; Z59.0 Homelessness; Z91.14 Patient's other noncompliance with medication regimen; Z91.19 Patient's noncompliance with other medical treatment and regimen; Z23 Encounter for immunization; Z88.0 Allergy status to penicillin; Z88.2 Allergy status to sulfonamides; Z79.899 Other long term (current) drug therapy; Z71.51 Drug abuse counseling and surveillance of drug abuser; Z71.6 Tobacco abuse counseling
CPT/HCPCS: 83036; 84439; 84443; 87081; 90686; J1200; J1630; J2060; J2405; Q0162

== ENCOUNTER 2019-08-22 07:54 | Inpatient (IN) | payer MEDICAID ==
[~2019-08-22] VITALS: Ht 180.3 cm; Wt 65.8 kg
[~2019-08-22 07:54] MED LIST changes: +LEVO25TA9 PO; +OLAN10TA3 PO
[2019-08-22 08:47] VITALS: BP 145/93
[2019-08-22] MEDS: TRIHEXYPHENIDYL HCL 5 MG TABLET PO SCH ×2 (10:38→16:49)
[2019-08-22] MEDS ORDERED: -PHARMACY VACCINE NOTE- MISC ONE (12:00)
[2019-08-22 16:06] VITALS: BP 120/82
[2019-08-22] MEDS: HALOPERIDOL 10 MG TABLET PO SCH (20:43)
[2019-08-23 08:25] VITALS: BP 112/75
[2019-08-23] MEDS: TRIHEXYPHENIDYL HCL 5 MG TABLET PO SCH ×2 (09:01→16:54)
[2019-08-23 10:15] LABS: APPEARANCE,URINE CLEAR (CLEAR); BILIRUBIN,URINE NEGATIVE (NEGATIVE); GLUCOSE, URINE (UA) NEGATIVE (NEGATIVE); KETONES,URINE NEGATIVE (NEGATIVE); LEUKOCYTE ESTERASE ,URINE NEGATIVE (NEGATIVE); NITRATE,URINE NEGATIVE (NEGATIVE); OCCULT BLOOD,URINE NEGATIVE (NEGATIVE); PH,URINE 7.5 (5.0-8.0)
[2019-08-23 10:27] LABS: PROTEIN,URINE NEGATIVE (NEGATIVE)
[2019-08-23 11:10] LABS: AMPHET/METH SCREEN,URINE NEGATIVE (NEGATIVE); BARBITURATE SCREEN, URINE NEGATIVE (NEGATIVE); BENZODIAZEPINES SCREEN,URINE NEGATIVE (NEGATIVE); CANNABINOID SCREEN,URINE POSITIVE (NEGATIVE); COCAINE SCREEN,URINE NEGATIVE (NEGATIVE); METHADONE SCREEN, URINE NEGATIVE (NEGATIVE); OPIATE SCREEN,URINE NEGATIVE (NEGATIVE)
[2019-08-23 11:15] LABS: PHENCYCLIDINE SCREEN,URINE NEGATIVE (NEGATIVE)
[2019-08-23] MEDS: LORazepam 2 MG TABLET PO PRN ×2 (13:03→17:07)
[2019-08-23 16:14] VITALS: BP 131/87
[2019-08-23] MEDS: HALOPERIDOL 5 MG TABLET PO PRN (16:54)
[2019-08-23] MEDS ORDERED: CloNIDine HCL 0.1 MG TABLET PO PRN (19:15)
[2019-08-23] MEDS ORDERED: ONDANSETRON HCL 4 MG TABLET PO PRN (19:15)
[2019-08-23] MEDS ORDERED: MAG HYDROX/AL HYDROX/SIMETH ES 30 ML SUSPENSION UDCUP PO PRN (19:15)
[2019-08-23] MEDS ORDERED: IBUPROFEN 600 MG TABLET PO PRN (19:15)
[2019-08-23] MEDS ORDERED: OMEPRAZOLE 20 MG CAPSULE PO PRN (19:15)
[2019-08-23] MEDS ORDERED: BENZOCAINE/MENTHOL LOZENGE MM PRN (19:15)
[2019-08-23] MEDS ORDERED: MAGNESIUM HYDROXIDE SUSPENSION 30 ML UDCUP PO PRN (19:15)
[2019-08-23] MEDS ORDERED: BACITRACIN 28.4 GM OINTMENT TP PRN (19:15)
[2019-08-23] MEDS ORDERED: DOCUSATE SODIUM 100 MG CAPSULE PO PRN (19:15)
[2019-08-23] MEDS ORDERED: LOPERAMIDE HCL 2 MG CAPSULE PO PRN (19:15)
[2019-08-23] MEDS ORDERED: ALBUTEROL SULFATE HFA 90 MCG/PUFF 8 GM INHALER IH PRN (19:15)
[2019-08-23] MEDS ORDERED: ACETAMINOPHEN 325 MG TABLET PO PRN (19:15)
[2019-08-23] MEDS ORDERED: PETROLATUM,WHITE 28 GM JELLY TP PRN (19:15)
[2019-08-23] MEDS: HALOPERIDOL 10 MG TABLET PO SCH (20:33)
[2019-08-23] MEDS: LevETIRAcetam 500 MG TABLET PO SCH (20:33)
[2019-08-23] MEDS: ZOLPIDEM TARTRATE 10 MG TABLET PO PRN (20:34)
[2019-08-24] MEDS: LEVOTHYROXINE SODIUM 25 MCG TABLET PO SCH (06:30)
[2019-08-24 08:02] VITALS: BP 117/68
[2019-08-24 08:14] LABS: BASOPHILS % (AUTO) 0.4 % (0.0-2.0); EOSINOPHILS % (AUTO) 8.8 % (1.0-6.0); HEMATOCRIT 41.3 % (41-53); HEMOGLOBIN 14.3 g/dL (13.5-17.5); LYMPHOCYTES % (AUTO) 23.2 % (22.0-44.0); MEAN CORPUSCULAR HEMOGLOBIN 29.3 pg (26.0-34.0); MEAN CORPUSCULAR HGB CONC 34.6 G/dL (31.0-37.0); MEAN CORPUSCULAR VOLUME 85 fL (80-100); MONOCYTES # (AUTO) 0.5 K/uL (0.1-1.0); MONOCYTES % (AUTO) 11.3 % (2.0-9.0); NEUTROPHILS # (AUTO) 2.5 K/uL (1.8-7.7); NEUTROPHILS % (AUTO) 56.3 % (40.0-70.0); PLATELET COUNT (AUTO) 181 K/uL (150-450); RED BLOOD CELL COUNT(AUTO) 4.87 MIL/uL (4.50-5.90)
[2019-08-24 08:48] LABS: HEMOGLOBIN A1C 5.5 % (4.5-6.2)
[2019-08-24] MEDS: LevETIRAcetam 500 MG TABLET PO SCH ×2 (08:56→17:01)
[2019-08-24] MEDS: EMTRICITABINE/TENOFOVIR 200-300 MG TABLET PO SCH (08:56)
[2019-08-24] MEDS: TRIHEXYPHENIDYL HCL 5 MG TABLET PO SCH ×2 (08:56→17:01)
[2019-08-24 09:12] LABS: ALANINE AMINOTRANSFERASE 76 U/L (12-78); ALBUMIN 2.8 g/dL (3.4-5.0); ALKALINE PHOSPHATASE 84 U/L (46-116); ANION GAP 8 mmol/L (8-16); ASPARTATE AMINOTRANSFERASE 56 U/L (15-37); BILIRUBIN,TOTAL 0.4 mg/dL (0.1-1.0); CALCIUM, TOTAL 8.8 mg/dL (8.8-10.5); CARBON DIOXIDE 23 mmol/L (22-29); CHLORIDE 106 mmol/L (98-107); CHOL/HDL RATIO 3.9 (4.2-7.3); CHOLESTEROL 136 mg/dL (131-200); CREATININE 0.99 mg/dL (0.60-1.30); FREE T4 (FREE THYROXINE) 1.06 ng/dL (0.76-1.46); GLOMERULAR FILTR. RATE CALC > 60 mL/min (>60); GLUCOSE,RANDOM 113 mg/dL (70-110); HDL CHOLESTEROL 35 mg/dL (40-60); LDL CHOL (CALC.) 91 mg/dL (0-130); POTASSIUM 3.4 mmol/L (3.5-5.1); SODIUM SERUM 137 mmol/L (136-145); THYROID STIMULATING HORMONE 8.83 uIU/mL (0.36-3.74); TOTAL PROTEIN, SERUM 7.1 g/dL (6.4-8.2); TRIGLYCERIDES 51 mg/dL (15-150); UREA NITROGEN, BLOOD 13 mg/dL (7-18)
[2019-08-24 16:17] VITALS: BP 119/74
[2019-08-24] MEDS ORDERED: POTASSIUM CHLORIDE 20 MEQ ER TABLET PO ONE (16:30)
[2019-08-24] MEDS: LORazepam 2 MG TABLET PO PRN (17:01)
[2019-08-24] MEDS: HALOPERIDOL 5 MG TABLET PO PRN (17:01)
[2019-08-24] MEDS: HALOPERIDOL 10 MG TABLET PO SCH (20:36)
[2019-08-24] MEDS: ZOLPIDEM TARTRATE 10 MG TABLET PO PRN (20:37)
[2019-08-25] MEDS: LEVOTHYROXINE SODIUM 25 MCG TABLET PO SCH (06:18)
[2019-08-25 06:45] VITALS: BP 126/76
[2019-08-25 08:14] LABS: FREE T4 (FREE THYROXINE) 1.04 ng/dL (0.76-1.46)
[2019-08-25] MEDS: EMTRICITABINE/TENOFOVIR 200-300 MG TABLET PO SCH (08:35)
[2019-08-25] MEDS: TRIHEXYPHENIDYL HCL 5 MG TABLET PO SCH ×2 (08:35→16:51)
[2019-08-25] MEDS: LevETIRAcetam 500 MG TABLET PO SCH ×2 (08:35→16:51)
[2019-08-25] MEDS: LORazepam 2 MG TABLET PO PRN ×2 (14:09→20:38)
[2019-08-25] MEDS: HALOPERIDOL 5 MG TABLET PO PRN (16:51)
[2019-08-25 17:19] VITALS: BP 135/86
[2019-08-25] MEDS: HALOPERIDOL 10 MG TABLET PO SCH (20:38)
[2019-08-25] MEDS: ZOLPIDEM TARTRATE 10 MG TABLET PO PRN (20:38)
[2019-08-26 02:39] VITALS: BP 118/81
[2019-08-26] MEDS: LEVOTHYROXINE SODIUM 25 MCG TABLET PO SCH (06:21)
[2019-08-26] MEDS: EMTRICITABINE/TENOFOVIR 200-300 MG TABLET PO SCH (09:15)
[2019-08-26] MEDS: LevETIRAcetam 500 MG TABLET PO SCH ×2 (09:15→16:33)
[2019-08-26] MEDS: TRIHEXYPHENIDYL HCL 5 MG TABLET PO SCH ×2 (09:16→16:33)
[2019-08-26 11:01] VITALS: BP 107/67
[2019-08-26 16:05] VITALS: BP 128/81
[2019-08-26] MEDS: LORazepam 2 MG TABLET PO PRN (16:33)
[2019-08-26] MEDS: HALOPERIDOL 5 MG TABLET PO PRN (16:33)
[2019-08-26] MEDS: HALOPERIDOL 10 MG TABLET PO SCH (20:32)
[2019-08-26] MEDS: ZOLPIDEM TARTRATE 10 MG TABLET PO PRN (20:32)
[2019-08-27 06:49] VITALS: BP 124/84
[2019-08-27] MEDS: LEVOTHYROXINE SODIUM 25 MCG TABLET PO SCH (07:09)
[2019-08-27 08:09] VITALS: BP 112/64
[2019-08-27] MEDS: TRIHEXYPHENIDYL HCL 5 MG TABLET PO SCH ×2 (08:28→16:15)
[2019-08-27] MEDS: LevETIRAcetam 500 MG TABLET PO SCH ×2 (08:28→16:15)
[2019-08-27] MEDS: EMTRICITABINE/TENOFOVIR 200-300 MG TABLET PO SCH (08:28)
[2019-08-27] MEDS: LORazepam 2 MG TABLET PO PRN (08:49)
[2019-08-27 16:00] VITALS: BP 123/78
[2019-08-27] MEDS: HALOPERIDOL 10 MG TABLET PO SCH (20:06)
[2019-08-28 04:30] VITALS: BP 124/75
[2019-08-28] MEDS: LEVOTHYROXINE SODIUM 25 MCG TABLET PO SCH (07:21)
[2019-08-28 08:08] VITALS: BP 124/89
[2019-08-28] MEDS: LevETIRAcetam 500 MG TABLET PO SCH ×2 (08:58→17:11)
[2019-08-28] MEDS: TRIHEXYPHENIDYL HCL 5 MG TABLET PO SCH ×2 (08:58→17:11)
[2019-08-28] MEDS: EMTRICITABINE/TENOFOVIR 200-300 MG TABLET PO SCH (08:59)
[2019-08-28 16:00] VITALS: BP 134/90
[2019-08-28] MEDS: HALOPERIDOL 5 MG TABLET PO PRN (17:11)
[2019-08-28] MEDS: LORazepam 2 MG TABLET PO PRN (17:11)
[2019-08-28] MEDS: HALOPERIDOL 10 MG TABLET PO SCH (20:17)
[2019-08-28] MEDS: ZOLPIDEM TARTRATE 10 MG TABLET PO PRN (20:17)
[2019-08-29] MEDS: LEVOTHYROXINE SODIUM 25 MCG TABLET PO SCH (06:23)
[2019-08-29 06:41] VITALS: BP 123/78
[2019-08-29 08:01] LABS: BAND NEUTROPHILS % (MANUAL) 0 % (0-5)
[2019-08-29 08:08] VITALS: BP 140/79
[2019-08-29 08:10] LABS: HEMOGLOBIN 14.4 g/dL (13.5-17.5); MEAN CORPUSCULAR HEMOGLOBIN 29.2 pg (26.0-34.0); MEAN CORPUSCULAR HGB CONC 34.3 G/dL (31.0-37.0); MEAN CORPUSCULAR VOLUME 85 fL (80-100); PLATELET COUNT (AUTO) 184 K/uL (150-450); RED BLOOD CELL COUNT(AUTO) 4.92 MIL/uL (4.50-5.90); RED CELL DISTRIBUTION WIDTH 14.3 % (11.5-14.5)
[2019-08-29 08:33] LABS: ANION GAP 8 mmol/L (8-16); CALCIUM, TOTAL 8.8 mg/dL (8.8-10.5); CARBON DIOXIDE 25 mmol/L (22-29); CHLORIDE 106 mmol/L (98-107); CREATININE 0.96 mg/dL (0.60-1.30); GLOMERULAR FILTR. RATE CALC > 60 mL/min (>60); GLUCOSE,RANDOM 82 mg/dL (70-110); PHOSPHORUS 3.5 mg/dL (2.5-4.9); POTASSIUM 4.4 mmol/L (3.5-5.1); SODIUM SERUM 139 mmol/L (136-145); THYROID STIMULATING HORMONE 7.01 uIU/mL (0.36-3.74); UREA NITROGEN, BLOOD 20 mg/dL (7-18)
[2019-08-29 09:03] LABS: EOSINOPHILS % (MANUAL) 4 % (1-6); LYMPHOCYTES % (MANUAL) 32 % (22-44); MONOCYTES % (MANUAL) 6 % (2-9); SEGMENTED NEUTROPHILS % 58 % (40-70)
[2019-08-29] MEDS: EMTRICITABINE/TENOFOVIR 200-300 MG TABLET PO SCH (09:12)
[2019-08-29] MEDS: TRIHEXYPHENIDYL HCL 5 MG TABLET PO SCH ×2 (09:13→16:18)
[2019-08-29] MEDS: LevETIRAcetam 500 MG TABLET PO SCH ×2 (09:14→16:18)
[2019-08-29] MEDS: LORazepam 2 MG TABLET PO PRN (14:31)
[2019-08-29] MEDS: MAGNESIUM OXIDE 400 MG TABLET PO SCH (16:18)
[2019-08-29 17:33] VITALS: BP 135/87
[2019-08-29] MEDS: HALOPERIDOL 10 MG TABLET PO SCH (20:03)
[2019-08-30] MEDS: LEVOTHYROXINE SODIUM 25 MCG TABLET PO SCH (06:46)
[2019-08-30 06:55] VITALS: BP 129/81
[2019-08-30] MEDS: MAGNESIUM OXIDE 400 MG TABLET PO SCH ×2 (08:58→16:25)
[2019-08-30] MEDS: LevETIRAcetam 500 MG TABLET PO SCH ×2 (08:58→16:26)
[2019-08-30] MEDS: HALOPERIDOL 5 MG TABLET PO PRN ×2 (08:58→17:18)
[2019-08-30] MEDS: LORazepam 2 MG TABLET PO PRN ×2 (08:58→16:26)
[2019-08-30] MEDS: TRIHEXYPHENIDYL HCL 5 MG TABLET PO SCH ×2 (08:58→16:26)
[2019-08-30] MEDS: EMTRICITABINE/TENOFOVIR 200-300 MG TABLET PO SCH (08:58)
[2019-08-30 09:44] VITALS: BP 119/79
[2019-08-30 16:00] VITALS: BP 123/78
[2019-08-30] MEDS: ZOLPIDEM TARTRATE 10 MG TABLET PO PRN (20:19)
[2019-08-30] MEDS: HALOPERIDOL 10 MG TABLET PO SCH (20:19)
[2019-08-31 01:10] VITALS: BP 126/75
[2019-08-31] MEDS: LEVOTHYROXINE SODIUM 25 MCG TABLET PO SCH (06:27)
[2019-08-31] MEDS: LORazepam 2 MG TABLET PO PRN (08:36)
[2019-08-31] MEDS: MAGNESIUM OXIDE 400 MG TABLET PO SCH (08:36)
[2019-08-31] MEDS: EMTRICITABINE/TENOFOVIR 200-300 MG TABLET PO SCH (08:36)
[2019-08-31] MEDS: TRIHEXYPHENIDYL HCL 5 MG TABLET PO SCH (08:36)
[2019-08-31] MEDS: HALOPERIDOL 5 MG TABLET PO PRN (08:36)
[2019-08-31] MEDS: LevETIRAcetam 500 MG TABLET PO SCH (08:36)
[2019-08-31 08:48] VITALS: BP 130/83
[2019-08-31] MEDS ORDERED: MAGOX PO (12:17)
== END 2019-08-31 14:00 | disposition home or self-care (01) | DRG 750 ==
LOC: B3A 09:07
PROVIDERS: ADMIT Psychiatry & Neurology Psychiatry; ATTEND Psychiatry & Neurology Psychiatry
DX: F25.9 Schizoaffective disorder, unspecified (principal); G40.909 Epilepsy, unspecified, not intractable, without status epilepticus; F12.90 Cannabis use, unspecified, uncomplicated; F15.10 Other stimulant abuse, uncomplicated; F17.200 Nicotine dependence, unspecified, uncomplicated; G47.00 Insomnia, unspecified; J45.909 Unspecified asthma, uncomplicated; Z88.0 Allergy status to penicillin; Z88.2 Allergy status to sulfonamides; F41.9 Anxiety disorder, unspecified
CPT/HCPCS: 80307; 83036; 83735; 84100; 84132; 84439; 84443; 85007

== ENCOUNTER 2019-09-07 11:50 | Emergency (ER) | payer MEDICAID ==
[~2019-09-07] VITALS: Ht 180.3 cm; Wt 59.1 kg
[~2019-09-07 11:50] MED LIST changes: +MAGOX PO; -NALT50TA6 PO; -OLAN10TA3 PO
[2019-09-07 13:57] LABS: BASOPHILS % (AUTO) 0.8 % (0.0-2.0); EOSINOPHILS % (AUTO) 2.5 % (1.0-6.0); HEMOGLOBIN 14.1 g/dL (13.5-17.5); LYMPHOCYTES # (AUTO) 1.1 K/uL (1.0-4.8); LYMPHOCYTES % (AUTO) 22.2 % (22.0-44.0); MEAN CORPUSCULAR HGB CONC 34.3 G/dL (31.0-37.0); MEAN CORPUSCULAR VOLUME 85 fL (80-100); MONOCYTES # (AUTO) 0.8 K/uL (0.1-1.0); MONOCYTES % (AUTO) 15.8 % (2.0-9.0); NEUTROPHILS # (AUTO) 2.9 K/uL (1.8-7.7); NEUTROPHILS % (AUTO) 58.7 % (40.0-70.0); PLATELET COUNT (AUTO) 233 K/uL (150-450); RED BLOOD CELL COUNT(AUTO) 4.85 MIL/uL (4.50-5.90); RED CELL DISTRIBUTION WIDTH 14.2 % (11.5-14.5)
[2019-09-07 14:06] LABS: ANION GAP 9 mmol/L (8-16); CALCIUM, TOTAL 8.8 mg/dL (8.8-10.5); CARBON DIOXIDE 27 mmol/L (22-29); CHLORIDE 106 mmol/L (98-107); CREATININE 0.84 mg/dL (0.60-1.30); GLOMERULAR FILTR. RATE CALC > 60 mL/min (>60); GLUCOSE,RANDOM 94 mg/dL (70-110); POTASSIUM 3.6 mmol/L (3.5-5.1); SODIUM SERUM 142 mmol/L (136-145); UREA NITROGEN, BLOOD 13 mg/dL (7-18)
[2019-09-07 14:06] LABS: AMPHET/METH SCREEN,URINE NEGATIVE (NEGATIVE); BARBITURATE SCREEN, URINE NEGATIVE (NEGATIVE); BENZODIAZEPINES SCREEN,URINE NEGATIVE (NEGATIVE); CANNABINOID SCREEN,URINE POSITIVE (NEGATIVE); COCAINE SCREEN,URINE NEGATIVE (NEGATIVE); METHADONE SCREEN, URINE NEGATIVE (NEGATIVE); OPIATE SCREEN,URINE NEGATIVE (NEGATIVE)
[2019-09-07 14:07] LABS: PHENCYCLIDINE SCREEN,URINE NEGATIVE (NEGATIVE)
[2019-09-07 14:11] LABS: ALANINE AMINOTRANSFERASE 71 U/L (12-78); ALBUMIN 2.8 g/dL (3.4-5.0); ALKALINE PHOSPHATASE 93 U/L (46-116); ASPARTATE AMINOTRANSFERASE 56 U/L (15-37); BILIRUBIN,TOTAL 0.4 mg/dL (0.1-1.0); TOTAL PROTEIN, SERUM 7.4 g/dL (6.4-8.2)
[2019-09-07] MEDS ORDERED: SODIUM CHLORIDE 0.9% 1,000 ML IV ONE (14:15)
[2019-09-07 14:48] VITALS: BP 154/92
== END 2019-09-07 16:41 | disposition home or self-care (01) ==
LOC: EMS 11:51
DX: F20.9 Schizophrenia, unspecified (principal); F41.9 Anxiety disorder, unspecified; J45.909 Unspecified asthma, uncomplicated; F17.210 Nicotine dependence, cigarettes, uncomplicated; F11.90 Opioid use, unspecified, uncomplicated; F12.90 Cannabis use, unspecified, uncomplicated; Z59.0 Homelessness; Z88.0 Allergy status to penicillin; Z88.2 Allergy status to sulfonamides; Z79.899 Other long term (current) drug therapy

== ENCOUNTER 2019-09-08 13:20 | Inpatient (IN) | payer MEDICAID ==
[~2019-09-08] VITALS: Ht 180.3 cm; Wt 64.0 kg
[2019-09-08 13:46] VITALS: BP 145/94
[2019-09-08 17:00] VITALS: BP 123/77
[2019-09-08] MEDS: LORazepam 2 MG TABLET PO PRN ×2 (17:23→23:43)
[2019-09-08] MEDS: TRIHEXYPHENIDYL HCL 5 MG TABLET PO SCH (17:23)
[2019-09-08] MEDS ORDERED: -PHARMACY VACCINE NOTE- MISC ONE (17:30)
[2019-09-08] MEDS: ZOLPIDEM TARTRATE 10 MG TABLET PO PRN (20:42)
[2019-09-08] MEDS: HALOPERIDOL 10 MG TABLET PO SCH (20:42)
[2019-09-09 00:46] VITALS: BP 131/80
[2019-09-09 08:07] LABS: BASOPHILS % (AUTO) 0.5 % (0.0-2.0); EOSINOPHILS % (AUTO) 5.6 % (1.0-6.0); HEMOGLOBIN 14.8 g/dL (13.5-17.5); LYMPHOCYTES # (AUTO) 1.8 K/uL (1.0-4.8); LYMPHOCYTES % (AUTO) 34.1 % (22.0-44.0); MEAN CORPUSCULAR HGB CONC 34.3 G/dL (31.0-37.0); MEAN CORPUSCULAR VOLUME 84 fL (80-100); MONOCYTES # (AUTO) 0.5 K/uL (0.1-1.0); NEUTROPHILS # (AUTO) 2.6 K/uL (1.8-7.7); NEUTROPHILS % (AUTO) 49.8 % (40.0-70.0); PLATELET COUNT (AUTO) 226 K/uL (150-450); RED BLOOD CELL COUNT(AUTO) 5.09 MIL/uL (4.50-5.90); RED CELL DISTRIBUTION WIDTH 14.3 % (11.5-14.5)
[2019-09-09] MEDS: TRIHEXYPHENIDYL HCL 5 MG TABLET PO SCH ×3 (08:31→16:02)
[2019-09-09 08:40] LABS: ALANINE AMINOTRANSFERASE 63 U/L (12-78); ALBUMIN 2.9 g/dL (3.4-5.0); ALKALINE PHOSPHATASE 93 U/L (46-116); ANION GAP 7 mmol/L (8-16); ASPARTATE AMINOTRANSFERASE 49 U/L (15-37); BILIRUBIN,TOTAL 0.4 mg/dL (0.1-1.0); CALCIUM, TOTAL 8.6 mg/dL (8.8-10.5); CARBON DIOXIDE 27 mmol/L (22-29); CHLORIDE 105 mmol/L (98-107); CHOL/HDL RATIO 3.2 (4.2-7.3); CHOLESTEROL 139 mg/dL (131-200); CREATININE 0.85 mg/dL (0.60-1.30); FREE T4 (FREE THYROXINE) 1.05 ng/dL (0.76-1.46); GLOMERULAR FILTR. RATE CALC > 60 mL/min (>60); GLUCOSE,RANDOM 86 mg/dL (70-110); HDL CHOLESTEROL 43 mg/dL (40-60); LDL CHOL (CALC.) 88 mg/dL (0-130); POTASSIUM 3.7 mmol/L (3.5-5.1); SODIUM SERUM 139 mmol/L (136-145); THYROID STIMULATING HORMONE 4.82 uIU/mL (0.36-3.74); TOTAL PROTEIN, SERUM 7.5 g/dL (6.4-8.2); TRIGLYCERIDES 40 mg/dL (15-150); UREA NITROGEN, BLOOD 16 mg/dL (7-18)
[2019-09-09 10:05] VITALS: BP 111/76
[2019-09-09] MEDS: LORazepam 2 MG TABLET PO PRN (16:02)
[2019-09-09 16:33] VITALS: BP 108/78
[2019-09-09] MEDS: ZOLPIDEM TARTRATE 10 MG TABLET PO PRN (20:45)
[2019-09-09] MEDS: HALOPERIDOL 10 MG TABLET PO SCH (20:45)
[2019-09-10 00:07] VITALS: BP 157/92
[2019-09-10 08:08] VITALS: BP 131/91
[2019-09-10] MEDS: TRIHEXYPHENIDYL HCL 5 MG TABLET PO SCH ×3 (08:57→16:03)
[2019-09-10] MEDS: LORazepam 2 MG TABLET PO PRN ×3 (10:04→20:49)
[2019-09-10 16:00] VITALS: BP 127/68
[2019-09-10] MEDS: HALOPERIDOL 10 MG TABLET PO SCH (20:49)
[2019-09-10] MEDS: ZOLPIDEM TARTRATE 10 MG TABLET PO PRN (20:49)
[2019-09-11 00:04] VITALS: BP 137/86
[2019-09-11] MEDS: TRIHEXYPHENIDYL HCL 5 MG TABLET PO SCH ×3 (09:23→16:08)
[2019-09-11 10:50] VITALS: BP 132/81
[2019-09-11] MEDS: LORazepam 2 MG TABLET PO PRN ×2 (16:08→20:34)
[2019-09-11 16:14] VITALS: BP 124/71
[2019-09-11] MEDS: HALOPERIDOL 10 MG TABLET PO SCH (20:34)
[2019-09-11] MEDS: ZOLPIDEM TARTRATE 10 MG TABLET PO PRN (20:34)
[2019-09-12 06:15] VITALS: BP 133/73
[2019-09-12] MEDS: LEVOTHYROXINE SODIUM 25 MCG TABLET PO SCH (06:37)
[2019-09-12 08:12] VITALS: BP 122/74
[2019-09-12] MEDS: LevETIRAcetam 500 MG TABLET PO SCH ×2 (08:16→16:14)
[2019-09-12] MEDS: TRIHEXYPHENIDYL HCL 5 MG TABLET PO SCH ×3 (08:16→16:15)
[2019-09-12] MEDS: EMTRICITABINE/TENOFOVIR 200-300 MG TABLET PO SCH (08:16)
[2019-09-12] MEDS ORDERED: BENZOCAINE/MENTHOL LOZENGE MM PRN (14:15)
[2019-09-12] MEDS ORDERED: PETROLATUM,WHITE 28 GM JELLY TP PRN (14:15)
[2019-09-12] MEDS ORDERED: IBUPROFEN 600 MG TABLET PO PRN (14:15)
[2019-09-12] MEDS ORDERED: MAGNESIUM HYDROXIDE SUSPENSION 30 ML UDCUP PO PRN (14:15)
[2019-09-12] MEDS ORDERED: ACETAMINOPHEN 325 MG TABLET PO PRN (14:15)
[2019-09-12] MEDS ORDERED: MAG HYDROX/AL HYDROX/SIMETH ES 30 ML SUSPENSION UDCUP PO PRN (14:15)
[2019-09-12] MEDS ORDERED: ONDANSETRON HCL 4 MG TABLET PO PRN (14:15)
[2019-09-12] MEDS ORDERED: CloNIDine HCL 0.1 MG TABLET PO PRN (14:15)
[2019-09-12] MEDS ORDERED: ALBUTEROL SULFATE HFA 90 MCG/PUFF 8 GM INHALER IH PRN (14:15)
[2019-09-12] MEDS ORDERED: BACITRACIN 28.4 GM OINTMENT TP PRN (14:15)
[2019-09-12] MEDS: LOPERAMIDE HCL 2 MG CAPSULE PO PRN (14:24)
[2019-09-12 16:01] VITALS: BP 129/94
[2019-09-12] MEDS: HALOPERIDOL 10 MG TABLET PO SCH (20:05)
[2019-09-13 06:34] VITALS: BP 122/78
[2019-09-13] MEDS: LEVOTHYROXINE SODIUM 25 MCG TABLET PO SCH (06:38)
[2019-09-13 08:15] VITALS: BP 119/69
[2019-09-13] MEDS: DOCUSATE SODIUM 100 MG CAPSULE PO SCH (08:24)
[2019-09-13] MEDS: LevETIRAcetam 500 MG TABLET PO SCH ×2 (08:24→16:06)
[2019-09-13] MEDS: OMEPRAZOLE 20 MG CAPSULE PO SCH (08:24)
[2019-09-13] MEDS: TRIHEXYPHENIDYL HCL 5 MG TABLET PO SCH ×3 (08:25→16:06)
[2019-09-13] MEDS: LORazepam 2 MG TABLET PO PRN ×3 (08:27→17:22)
[2019-09-13] MEDS: EMTRICITABINE/TENOFOVIR 200-300 MG TABLET PO SCH (09:04)
[2019-09-13 16:00] VITALS: BP 132/82
[2019-09-13] MEDS: HALOPERIDOL 10 MG TABLET PO SCH (20:24)
[2019-09-14 00:49] VITALS: BP 112/93
[2019-09-14] MEDS: LEVOTHYROXINE SODIUM 25 MCG TABLET PO SCH (06:50)
[2019-09-14 08:00] VITALS: BP 107/83
[2019-09-14] MEDS: OMEPRAZOLE 20 MG CAPSULE PO SCH (08:25)
[2019-09-14] MEDS: DOCUSATE SODIUM 100 MG CAPSULE PO SCH (08:25)
[2019-09-14] MEDS: EMTRICITABINE/TENOFOVIR 200-300 MG TABLET PO SCH (08:25)
[2019-09-14] MEDS: LORazepam 2 MG TABLET PO PRN ×3 (08:25→20:12)
[2019-09-14] MEDS: TRIHEXYPHENIDYL HCL 5 MG TABLET PO SCH ×3 (08:25→16:09)
[2019-09-14] MEDS: LevETIRAcetam 500 MG TABLET PO SCH ×2 (08:25→16:09)
[2019-09-14 16:00] VITALS: BP 125/87
[2019-09-14] MEDS: ZOLPIDEM TARTRATE 10 MG TABLET PO PRN (20:12)
[2019-09-14] MEDS: HALOPERIDOL 10 MG TABLET PO SCH (20:12)
[2019-09-15 05:48] VITALS: BP 115/80
[2019-09-15] MEDS: LEVOTHYROXINE SODIUM 25 MCG TABLET PO SCH (06:08)
[2019-09-15 08:06] VITALS: BP 130/81
[2019-09-15] MEDS: OMEPRAZOLE 20 MG CAPSULE PO SCH (08:48)
[2019-09-15] MEDS: TRIHEXYPHENIDYL HCL 5 MG TABLET PO SCH ×3 (08:49→16:15)
[2019-09-15] MEDS: DOCUSATE SODIUM 100 MG CAPSULE PO SCH (08:49)
[2019-09-15] MEDS: LevETIRAcetam 500 MG TABLET PO SCH ×2 (08:49→16:15)
[2019-09-15] MEDS: EMTRICITABINE/TENOFOVIR 200-300 MG TABLET PO SCH (08:50)
[2019-09-15] MEDS: LOPERAMIDE HCL 2 MG CAPSULE PO PRN (09:21)
[2019-09-15 16:45] VITALS: BP 123/97
[2019-09-15] MEDS: HALOPERIDOL 10 MG TABLET PO SCH (20:20)
[2019-09-15] MEDS: ZOLPIDEM TARTRATE 10 MG TABLET PO PRN (20:20)
[2019-09-16 01:35] VITALS: BP 140/92
[2019-09-16] MEDS: LEVOTHYROXINE SODIUM 25 MCG TABLET PO SCH (06:08)
[2019-09-16 08:06] VITALS: BP 137/88
[2019-09-16] MEDS: TRIHEXYPHENIDYL HCL 5 MG TABLET PO SCH ×3 (08:40→16:47)
[2019-09-16] MEDS: LevETIRAcetam 500 MG TABLET PO SCH ×2 (08:40→16:47)
[2019-09-16] MEDS: OMEPRAZOLE 20 MG CAPSULE PO SCH (08:40)
[2019-09-16] MEDS: DOCUSATE SODIUM 100 MG CAPSULE PO SCH (08:40)
[2019-09-16] MEDS: EMTRICITABINE/TENOFOVIR 200-300 MG TABLET PO SCH (08:41)
[2019-09-16] MEDS: LORazepam 2 MG TABLET PO PRN ×3 (09:33→20:53)
[2019-09-16 16:00] VITALS: BP 124/70
[2019-09-16] MEDS: ZOLPIDEM TARTRATE 10 MG TABLET PO PRN (20:31)
[2019-09-16] MEDS: HALOPERIDOL 10 MG TABLET PO SCH (20:31)
[2019-09-17] MEDS: LEVOTHYROXINE SODIUM 25 MCG TABLET PO SCH (06:16)
[2019-09-17 06:59] VITALS: BP 128/88
[2019-09-17 08:07] VITALS: BP 125/70
[2019-09-17] MEDS: TRIHEXYPHENIDYL HCL 5 MG TABLET PO SCH ×2 (08:35→12:45)
[2019-09-17] MEDS: OMEPRAZOLE 20 MG CAPSULE PO SCH (08:35)
[2019-09-17] MEDS: EMTRICITABINE/TENOFOVIR 200-300 MG TABLET PO SCH (08:35)
[2019-09-17] MEDS: DOCUSATE SODIUM 100 MG CAPSULE PO SCH (08:35)
[2019-09-17] MEDS: LevETIRAcetam 500 MG TABLET PO SCH (09:10)
== END 2019-09-17 13:30 | disposition home or self-care (01) | DRG 750 ==
LOC: B3A 14:56
PROVIDERS: ADMIT Psychiatry & Neurology Psychiatry; ATTEND Psychiatry & Neurology Psychiatry
DX: F25.9 Schizoaffective disorder, unspecified (principal); R45.851 Suicidal ideations; G40.909 Epilepsy, unspecified, not intractable, without status epilepticus; Z88.0 Allergy status to penicillin; Z88.1 Allergy status to other antibiotic agents; J45.909 Unspecified asthma, uncomplicated; G47.00 Insomnia, unspecified; Z59.0 Homelessness; F41.9 Anxiety disorder, unspecified; F12.90 Cannabis use, unspecified, uncomplicated; F15.10 Other stimulant abuse, uncomplicated; F17.200 Nicotine dependence, unspecified, uncomplicated
CPT/HCPCS: 84439; 84443; 86592; 87081

== ENCOUNTER 2020-01-15 11:09 | Inpatient (IN) | payer MEDICAID ==
[~2020-01-15 11:09] MED LIST changes: -MAGOX PO
[2020-01-15] MEDS ORDERED: HALOPERIDOL LACTATE 5 MG/ML VIAL IM ONE (14:45)
[2020-01-15] MEDS ORDERED: LORazepam 2 MG/ML VIAL IM ONE (14:45)
[2020-01-15] MEDS ORDERED: DiphenhydrAMINE HCL 50 MG/ML VIAL IM ONE (14:45)
[2020-01-15] MEDS ORDERED: INFLUENZA VIRUS VACCINE QVS 2019-20 (3YR+)/PF 60 MCG/0.5 ML SYRINGE IM ONE (19:15)
[2020-01-16] MEDS: LEVOTHYROXINE SODIUM 25 MCG TABLET PO SCH (06:50)
[2020-01-16 07:39] LABS: BASOPHILS % (AUTO) 0.7 % (0.0-2.0); EOSINOPHILS % (AUTO) 9.5 % (1.0-6.0); HEMATOCRIT 44.5 % (41-53); HEMOGLOBIN 15.7 g/dL (13.5-17.5); LYMPHOCYTES % (AUTO) 39.5 % (22.0-44.0); MEAN CORPUSCULAR HEMOGLOBIN 29.7 pg (26.0-34.0); MEAN CORPUSCULAR HGB CONC 35.3 G/dL (31.0-37.0); MEAN CORPUSCULAR VOLUME 84 fL (80-100); MONOCYTES # (AUTO) 0.5 K/uL (0.1-1.0); MONOCYTES % (AUTO) 10.8 % (2.0-9.0); NEUTROPHILS % (AUTO) 39.5 % (40.0-70.0); PLATELET COUNT (AUTO) 178 K/uL (150-450); RED BLOOD CELL COUNT(AUTO) 5.29 MIL/uL (4.50-5.90); RED CELL DISTRIBUTION WIDTH 14.3 % (11.5-14.5)
[2020-01-16 08:11] LABS: ALANINE AMINOTRANSFERASE 86 U/L (12-78); ALBUMIN 3.4 g/dL (3.4-5.0); ALKALINE PHOSPHATASE 77 U/L (46-116); ANION GAP 9 mmol/L (8-16); ASPARTATE AMINOTRANSFERASE 51 U/L (15-37); BILIRUBIN,TOTAL 0.4 mg/dL (0.1-1.0); CALCIUM, TOTAL 9.2 mg/dL (8.8-10.5); CARBON DIOXIDE 25 mmol/L (22-29); CHLORIDE 105 mmol/L (98-107); CHOL/HDL RATIO 4.3 (4.2-7.3); CHOLESTEROL 185 mg/dL (131-200); CREATININE 1.04 mg/dL (0.60-1.30); FREE T4 (FREE THYROXINE) 1.14 ng/dL (0.76-1.46); GLOMERULAR FILTR. RATE CALC > 60 mL/min (>60); GLUCOSE,RANDOM 82 mg/dL (70-110); HDL CHOLESTEROL 43 mg/dL (40-60); HEMOGLOBIN A1C 5.7 % (3.8-5.6); LDL CHOL (CALC.) 120 mg/dL (0-130); POTASSIUM 4.2 mmol/L (3.5-5.1); SODIUM SERUM 139 mmol/L (136-145); THYROID STIMULATING HORMONE 6.69 uIU/mL (0.36-3.74); TOTAL PROTEIN, SERUM 8.3 g/dL (6.4-8.2); TRIGLYCERIDES 108 mg/dL (15-150); UREA NITROGEN, BLOOD 13 mg/dL (7-18)
[2020-01-16] MEDS ORDERED: BENZOCAINE/MENTHOL LOZENGE MM PRN (08:30)
[2020-01-16] MEDS ORDERED: PETROLATUM,WHITE 28 GM JELLY TP PRN (08:30)
[2020-01-16] MEDS ORDERED: CloNIDine HCL 0.1 MG TABLET PO PRN (08:30)
[2020-01-16] MEDS ORDERED: LOPERAMIDE HCL 2 MG CAPSULE PO PRN (08:30)
[2020-01-16] MEDS ORDERED: BACITRACIN 28.4 GM OINTMENT TP PRN (08:30)
[2020-01-16] MEDS ORDERED: IBUPROFEN 600 MG TABLET PO PRN (08:30)
[2020-01-16] MEDS ORDERED: ACETAMINOPHEN 325 MG TABLET PO PRN (08:30)
[2020-01-16] MEDS ORDERED: DOCUSATE SODIUM 100 MG CAPSULE PO PRN (08:30)
[2020-01-16] MEDS ORDERED: ALBUTEROL SULFATE HFA 90 MCG/PUFF 8 GM INHALER IH PRN (08:30)
[2020-01-16] MEDS ORDERED: OMEPRAZOLE 20 MG CAPSULE PO PRN (08:30)
[2020-01-16] MEDS ORDERED: MAG HYDROX/AL HYDROX/SIMETH ES 30 ML SUSPENSION UDCUP PO PRN (08:30)
[2020-01-16] MEDS ORDERED: ONDANSETRON HCL 4 MG TABLET PO PRN (08:30)
[2020-01-16] MEDS ORDERED: MAGNESIUM HYDROXIDE SUSPENSION 30 ML UDCUP PO PRN (08:30)
[2020-01-16] MEDS: EMTRICITABINE/TENOFOVIR 200-300 MG TABLET PO SCH (09:00)
[2020-01-16] MEDS: TRIHEXYPHENIDYL HCL 5 MG TABLET PO SCH ×2 (09:00→16:00)
[2020-01-16] MEDS: HALOPERIDOL 5 MG TABLET PO PRN (16:00)
[2020-01-16] MEDS: LORazepam 2 MG TABLET PO PRN ×2 (16:00→20:22)
[2020-01-16 17:58] VITALS: BP 140/97
[2020-01-16] MEDS: ZOLPIDEM TARTRATE 10 MG TABLET PO PRN (20:22)
[2020-01-16] MEDS: HALOPERIDOL 10 MG TABLET PO SCH (20:22)
[2020-01-16 20:37] VITALS: BP 140/97
[2020-01-17 04:50] VITALS: BP 135/91
[2020-01-17] MEDS: LEVOTHYROXINE SODIUM 25 MCG TABLET PO SCH (06:48)
[2020-01-17] MEDS: TRIHEXYPHENIDYL HCL 5 MG TABLET PO SCH ×2 (08:57→16:08)
[2020-01-17] MEDS: EMTRICITABINE/TENOFOVIR 200-300 MG TABLET PO SCH (08:58)
[2020-01-17] MEDS: LORazepam 2 MG TABLET PO PRN ×2 (13:53→18:08)
[2020-01-17 17:08] VITALS: BP 134/88
[2020-01-17] MEDS: HALOPERIDOL 10 MG TABLET PO SCH (20:58)
[2020-01-18 05:45] VITALS: BP 132/83
[2020-01-18] MEDS: LEVOTHYROXINE SODIUM 25 MCG TABLET PO SCH (06:52)
[2020-01-18] MEDS: TRIHEXYPHENIDYL HCL 5 MG TABLET PO SCH ×2 (08:17→16:47)
[2020-01-18] MEDS: EMTRICITABINE/TENOFOVIR 200-300 MG TABLET PO SCH (08:17)
[2020-01-18 16:17] VITALS: BP 146/95
[2020-01-18] MEDS: HALOPERIDOL 10 MG TABLET PO SCH (20:26)
[2020-01-19 05:31] VITALS: BP 117/69
[2020-01-19] MEDS: LEVOTHYROXINE SODIUM 25 MCG TABLET PO SCH (06:35)
[2020-01-19] MEDS: EMTRICITABINE/TENOFOVIR 200-300 MG TABLET PO SCH (08:38)
[2020-01-19] MEDS: TRIHEXYPHENIDYL HCL 5 MG TABLET PO SCH ×2 (08:39→16:05)
[2020-01-19 08:45] VITALS: BP 119/68
[2020-01-19] MEDS: LORazepam 2 MG TABLET PO PRN (16:05)
[2020-01-19] MEDS: HALOPERIDOL 5 MG TABLET PO PRN (16:05)
[2020-01-19 16:13] VITALS: BP 136/92
[2020-01-19] MEDS: ZOLPIDEM TARTRATE 10 MG TABLET PO PRN (20:55)
[2020-01-19] MEDS: HALOPERIDOL 10 MG TABLET PO SCH (20:55)
[2020-01-20 02:07] VITALS: BP 131/81
[2020-01-20] MEDS: LEVOTHYROXINE SODIUM 25 MCG TABLET PO SCH (06:31)
[2020-01-20 08:21] VITALS: BP 113/64
[2020-01-20] MEDS: EMTRICITABINE/TENOFOVIR 200-300 MG TABLET PO SCH (08:34)
[2020-01-20] MEDS: TRIHEXYPHENIDYL HCL 5 MG TABLET PO SCH ×2 (08:34→17:20)
[2020-01-20] MEDS ORDERED: TRIH5TAB2 PO (13:11)
[2020-01-20 16:03] VITALS: BP 128/86
== END 2020-01-20 18:34 | disposition home or self-care (01) | DRG 750 ==
LOC: B3A 14:50
PROVIDERS: ADMIT Psychiatry & Neurology Psychiatry; ATTEND Psychiatry & Neurology Psychiatry
DX: F20.0 Paranoid schizophrenia (principal); D57.1 Sickle-cell disease without crisis; R45.851 Suicidal ideations; K75.9 Inflammatory liver disease, unspecified; F11.10 Opioid abuse, uncomplicated; J45.909 Unspecified asthma, uncomplicated; I10 Essential (primary) hypertension; G47.00 Insomnia, unspecified; K59.00 Constipation, unspecified; Z72.0 Tobacco use; Z79.899 Other long term (current) drug therapy
CPT/HCPCS: 83036; 84439; 84443

== ENCOUNTER 2022-11-10 01:08 | Emergency (ER) | payer MEDICAID, OTHER ==
[~2022-11-10] VITALS: Ht 175.3 cm; Wt 74.0 kg
[~2022-11-10 01:08] MED LIST changes: +EMTR1TAB53 PO; -HALO10 PO; +HALO10TA21 PO; -LEVE500T53 PO; -TRIH5TAB2 PO; +TRIH5TAB4 PO; -TRUVT PO
[2022-11-10 02:17] LABS: BASOPHILS % (AUTO) 0.6 % (0.0-2.0); EOSINOPHILS % (AUTO) 1.5 % (1.0-6.0); HEMATOCRIT 34.8 % (41-53); LYMPHOCYTES # (AUTO) 2.3 K/uL (1.0-4.8); LYMPHOCYTES % (AUTO) 30.2 % (22.0-44.0); MEAN CORPUSCULAR HEMOGLOBIN 30.9 pg (26.0-34.0); MEAN CORPUSCULAR HGB CONC 34.5 G/dL (31.0-37.0); MEAN CORPUSCULAR VOLUME 90 fL (80-100); NEUTROPHILS % (AUTO) 53.7 % (40.0-70.0); PLATELET COUNT (AUTO) 275 K/uL (150-450); RED BLOOD CELL COUNT(AUTO) 3.88 MIL/uL (4.50-5.90); RED CELL DISTRIBUTION WIDTH 14.4 % (11.5-14.5)
[2022-11-10 02:33] LABS: ALKALINE PHOSPHATASE 70 U/L (46-116); ANION GAP 5 mmol/L (8-16); BILIRUBIN,TOTAL 0.2 mg/dL (0.1-1.0); CALCIUM, TOTAL 9.7 mg/dL (8.8-10.5); CARBON DIOXIDE 28 mmol/L (22-29); CHLORIDE 102 mmol/L (98-107); GLUCOSE,RANDOM 99 mg/dL (70-110); SODIUM SERUM 135 mmol/L (136-145); TOTAL PROTEIN, SERUM 9.3 g/dL (6.4-8.2); UREA NITROGEN, BLOOD 20 mg/dL (7-18)
[2022-11-10 02:38] LABS: COVID AG,FIA SOURCE NASOPHARYNGEAL
[2022-11-10 03:21] LABS: AMPHET/METH SCREEN,URINE NEGATIVE (NEGATIVE); BARBITURATE SCREEN, URINE NEGATIVE (NEGATIVE); BENZODIAZEPINES SCREEN,URINE NEGATIVE (NEGATIVE); CANNABINOID SCREEN,URINE POSITIVE (NEGATIVE); COCAINE SCREEN,URINE NEGATIVE (NEGATIVE); METHADONE SCREEN, URINE NEGATIVE (NEGATIVE); OPIATE SCREEN,URINE NEGATIVE (NEGATIVE)
[2022-11-10 03:21] LABS: ALANINE AMINOTRANSFERASE 38 U/L (12-78); ALBUMIN 2.9 g/dL (3.4-5.0); ASPARTATE AMINOTRANSFERASE 35 U/L (15-37); CREATININE 1.35 mg/dL (0.60-1.30)
[2022-11-10 03:23] LABS: GLOMERULAR FILTR. RATE CALC > 60 mL/min (>60)
[2022-11-10 03:23] LABS: PHENCYCLIDINE SCREEN,URINE NEGATIVE (NEGATIVE)
[2022-11-10 03:28] LABS: APPEARANCE,URINE CLEAR (CLEAR); BILIRUBIN,URINE NEGATIVE (NEGATIVE); GLUCOSE, URINE (UA) NEGATIVE (NEGATIVE); KETONES,URINE NEGATIVE (NEGATIVE); LEUKOCYTE ESTERASE ,URINE TRACE (NEGATIVE); NITRATE,URINE NEGATIVE (NEGATIVE); OCCULT BLOOD,URINE NEGATIVE (NEGATIVE); PH,URINE 5.5 (5.0-8.0); PROTEIN,URINE TRACE mg/dL (NEGATIVE); SPECIFIC GRAVITIY, URINE 1.018 (1.003-1.030); UROBILINOGEN,URINE <=1.0 mg/dL (<=1.0)
[2022-11-10 03:40] LABS: BACTERIA,URINE None Seen /HPF (None Seen); RBC,URINE 0-2 /HPF (0-2)
[2022-11-10 03:53] VITALS: BP 135/85
== END 2022-11-10 04:41 | disposition home or self-care (01) ==
LOC: EMS 01:09
DX: F12.90 Cannabis use, unspecified, uncomplicated (principal); F10.20 Alcohol dependence, uncomplicated; F20.9 Schizophrenia, unspecified; F41.9 Anxiety disorder, unspecified; F17.210 Nicotine dependence, cigarettes, uncomplicated; Z86.19 Personal history of other infectious and parasitic diseases; Z20.822 Contact with and (suspected) exposure to COVID-19; Z86.16 Personal history of COVID-19; J45.909 Unspecified asthma, uncomplicated; Z88.0 Allergy status to penicillin
CPT/HCPCS: 99284; 87426; 80053; 85025; 36415; 80307; 81001; G0480